=== PATIENT | female | born 1940 | race Caucasian/White ===

== ENCOUNTER 2020-05-06 10:51 | Outpatient (CLI) | payer MEDICARE, SELFPAY ==
[2020-05-06 11:12] LABS: Basophils Absolute Auto 0.1 K/mm3 (0.0-0.1); Basophils Percent Auto 0.7 % (0.2-1.2); Eosinophils Absolute Auto 0.2 K/mm3 (0-0.3); Eosinophils Percent Auto 1.9 % (0-4.4); Hematocrit 41.8 % (37.0-47.0); Immature Granulocyte Absolute 0.03 K/mm3 (0.00-0.031); Immature Granulocyte Percent A 0.3 % (0-0.5); Lymphocytes Absolute Auto 2.58 K/mm3 (0.9-3.2); Lymphocytes Percent Auto 26.3 % (18.3-44.2); Mean Corpuscular HGB Conc 33.5 g/dl (32-36); Mean Corpuscular Hemoglobin 30.4 pg (26-34); Mean Corpuscular Volume 90.9 fl (80-100); Mean Platelet Volume 9.3 fl (7.4-10.4); Monocytes Absolute Auto 0.9 K/mm3 (0.1-0.6); Monocytes Percent Auto 8.9 % (2.6-8.5); Neutrophils Absolute Auto 6.1 K/mm3 (1.3-6.7); Neutrophils Percent Auto 61.9 % (45.5-73.1); Platelet Count Result 340 k/mm3 (150-375); Red Cell Distribution Width 13.9 % (11.5-14.5); White Blood Count 9.8 K/mm3 (4.5-10.0)
[2020-05-06 11:24] LABS: Alanine Aminotransferase 11 U/L (4-35); Albumin Level 4.5 g/dL (3.5-5.1); Alkaline Phosphatase 65 U/L (38-126); Anion Gap 9 mmol/L (8-16); Aspartate Amino Transferase 23 U/L (14-36); Bilirubin,Total 0.4 mg/dL (0.2-1.3); Blood Urea Nitrogen 24 mg/dL (7-17); Calcium 9.8 mg/dL (8.4-10.2); Carbon Dioxide 30 mmol/L (22-30); Chloride 99 mmol/L (98-107); Estimated Glomerular Filt Rate > 60; Glucose 95 mg/dL (65-105); Potassium 4.3 mmol/L (3.4-5.0); Sodium 138 mmol/L (137-145); Uric Acid 6.3 mg/dL (2.5-7.5)
== END 2020-05-06 10:52 | disposition home or self-care (01) ==
LOC: ANHLAB 10:53
PROVIDERS: PCP Family Medicine; Visit Provider Family Medicine
DX: R22.40 Localized swelling, mass and lump, unspecified lower limb (principal)
CPT/HCPCS: 36415; 80053; 84550; 85025

== ENCOUNTER 2020-05-07 11:27 | Outpatient (CLI) | payer MEDICARE, SELFPAY ==
--- NOTE | ~2020-05-07 | US_ITS ---
EXAMINATION: US venous doppler [facility] DATE: 05/07/2020 12:02 INDICATION: Left lower limb pain. TECHNIQUE: Grayscale ultrasound images without and with compression and Doppler ultrasound images of the left lower extremity veins were obtained. COMPARISON: None. FINDINGS: The visualized portions of left common femoral vein, profunda (deep) femoral vein, femoral vein, popl iteal vein, peroneal veins, posterior tibial veins, and greater saphenous vein outflow are patent. IMPRESSION: 1. No deep venous thrombosis. Reviewed, dictated and finalized at location A.
== END 2020-05-07 11:28 | disposition home or self-care (01) ==
PROVIDERS: PCP Family Medicine; Visit Provider Family Medicine
DX: R22.42 Localized swelling, mass and lump, left lower limb (principal)
CPT/HCPCS: 93971

== ENCOUNTER 2020-05-15 23:23 | Emergency (ER) | payer MEDICARE, SELFPAY ==
--- NOTE | ~2020-05-15 | CT_ITS ---
EXAMINATION: CTA chest PE protocol DATE: 05/16/2020 00:52 INDICATION: Cough and shortness of breath TECHNIQUE: Computed tomography angiography (CTA) of the chest was performed with 100 mL Omnipaque-350 intravenous contrast timed to evaluate the pulmonary arteries. Coronal maximum intensity projection 3D-reconstructions were created by the technologist. The dose-length product (DLP) was 565.66 mGy-cm. Automated exposure control and iterative reconstruction technique were employed. COMPARISON: 08/18/2017 FINDINGS: The pulmonary arteries are well-opacified. No pulmonary embolism is identified. There is a n approximately 3.9 x 2.8 cm left hilar mass. A 4 mm nodule of the right lung apex on image 25 is sta ble when compared to the prior examination, consistent with old granulomatous disease. There is a 6 m m nodule of the right lower lobe on image 71. There is mild emphysema. No pleural effusion or pneumot horax is identified. No pathologically enlarged thoracic lymph nodes are identified. The heart size i s normal. Calcified coronary artery atherosclerosis is noted. There is moderate thoracic spondylosis. IMPRESSION: 1. Left hilar mass concerning for primary bronchogenic carcinoma. This would likely be amenable to br onchoscopic biopsy, which is recommended. 2. No pulmonary embolism. 3. Right lung nodules as described, one of which is consistent with old granulomatous disease in the other of which is indeterminate. Reviewed, dictated and finalized at location A. HBOARD STUFFER IMPRESSION: 1. Left hilar mass concerning for primary bronchogenic carcinoma. This would li tori be amenable to bronchoscopic biopsy, which is recommended. 2. No pulmonary embolism. 3. Right lung nodules as described, one of which is consistent with old granulo matous disease in the other of which is indeterminate.
--- NOTE | ~2020-05-15 | CT_ITS ---
EXAMINATION: CT brain wo con INDICATION: Weakness COMPARISON: None TECHNIQUE: Standard unenhanced head CT. The dose-length product (DLP) was 605.33 mGy-cm. The mA was a djusted according to patient size. Iterative reconstruction technique was employed. FINDINGS: There is no acute intraparenchymal hemorrhage. No evidence of mass lesion. No evidence of a cute infarction. There is an old lacunar infarct of the right caudate. 7There is mild periventricular and subcortical hypodensity probably related to small vessel ischemic disease. There is mild promine nce of the sulci and ventricles related to cerebral atrophy. Intracranial calcified cerebral atherosc lerosis is noted. There are no extra-axial collections. There is no mass effect or midline shift. Emmy nges in the globes are likely from ocular lens surgery. The visualized sinuses and mastoid air cells are well aerated. IMPRESSION: 1. No acute intracranial abnormality. 2. Age related findings. Reviewed, dictated and finalized at location A. AINER CRANE OPERATOR
--- NOTE | 2020-05-15 23:25 | ED.GENADULT ---
HPI - General Adult General Chief complaint: Weakness Stated complaint: coughing up blood/ headache Time Seen by Provider: 05/15/20 23:25 Source: patient and family Mode of arrival: wheelchair Limitations: no limitations History of Present Illness HPI narrative: Patient is a 80-year-old female with a history of hypertension, hyperlipidemia, COPD, congestive heart failure who presents for evaluation of weakness, hemoptysis. Patient states that she has had increased weakness since obtaining her flu vaccination 2 weeks ago. After she was given the flu vaccination by her primary care physician, she 2 days later developed left ankle redness and swelling that extended throughout her leg. Her left leg was negative for DVT. Swelling has since improved. Since that time, patient has had increased weakness, shortness of breath, has been coughing up blood over the past several days. She denies large blood clots, reports streakiness of blood. She denies history of lung cancer, states she does have a history of ovarian cancer. She denies fever or unintentional weight loss. She does report decreased oral intake. She reports some nausea with a couple of episodes of emesis, but was able to tolerate oral intake today. She denies abdominal pain. She reports malodorous urine without dysuria or hematuria. Related Data Allergies Allergy/AdvReac Type Severity Reaction Status Date / Time No Known Allergies Allergy Verified 05/02/17 09:44 Review of Systems Review of Systems: Narrative: CONSTITUTIONAL: Denies fever, chills, or sweats. EYES: Denies visual changes ENT: Denies rhinorrhea, congestion, sore throat, or otalgia. CARDIOVASCULAR: Denies chest pain, palpitations, or edema. RESPIRATORY: Reports cough and shortness of breath GASTROINTESTINAL: Denies abdominal pain, reports nausea and vomiting GENITOURINARY: Denies dysuria or hematuria. Pt does report malodorous urine. SKIN: Denies rash or itching. MUSCULOSKELETAL: Denies back pain, joint pain, or myalgia. NEUROLOGIC: Reports mild headache, denies numbness, reports feeling diffusely weak PMFSH Past Medical History Medical History (Updated 05/16/20 @ 02:20 by Linda Howell MD) Chronic back pain COPD (chronic obstructive pulmonary disease) Depression Diabetes Hyperlipidemia Hypertension Hypothyroidism Ovarian cancer Surgical History Surgical History (Updated 05/15/20 @ 23:51 by Linda Howell MD) History of appendectomy Hx of cholecystectomy Family History Family History (Updated 03/31/17 @ 15:05 by DOCTOR UNKNOWN) Mother Family history of Alzheimer's disease Patient's mother is Sibling Family history of heart disease in male family member before age 55, Onset Age: 40 Patient's sister is Hypertension Other Family history of mental disorder Social History Social History Smoking status: Former smoker Smoking end date: 07/10/15 Alcohol intake: never Exam Narrative: Exam Narrative: GENERAL: Awake, alert, conversant HEAD: Normocephalic, atraumatic. EYES: PERRLA and EOMI. ENT: Nares clear, no rhinorrhea or epistaxis. Mucous membranes moist. NECK: Supple. CHEST: No respiratory distress, breathing even and non labored, lungs clear to auscultation bilaterally HEART: Regular rate, sinus rhythm ABDOMEN:Non distended, non tender EXTREMITIES: Normal range of motion. No edema. SKIN: Warm, dry, petechiae to bilateral anterior shins NEURO:No focal deficits. Alert and oriented x3 Course Vital Signs Vital signs: Vital Signs Temperature 36.7 C 05/15/20 23:29 Pulse Rate 81 05/15/20 23:29 Respiratory Rate 24 H 05/15/20 23:29 Blood Pressure 163/64 H 05/15/20 23:29 Pulse Oximetry 100 05/15/20 23:29 Temperature 36.9 C 05/16/20 02:30 Pulse Rate 87 05/16/20 02:30 Respiratory Rate 20 05/16/20 02:30 Blood Pressure 157/57 H 05/16/20 02:30 Pulse Oximetry 94 05/16/20 02:30 Medical Decision Making MDM
[2020-05-15 23:29] VITALS: BP 163/64; PULSE 81; RESP 24; TEMP 36.7; O2SAT 100
[2020-05-16 00:17] LABS: Prothrombin Time 13.6 Seconds (11.1-14.7)
[2020-05-16 00:20] LABS: D Dimer 1.95 ug/mL (<0.48)
[2020-05-16 00:23] LABS: Basophils Percent Auto 0.5 % (0.2-1.2); Eosinophils Absolute Auto 0.1 K/mm3 (0-0.3); Immature Granulocyte Absolute 0.02 K/mm3 (0.00-0.031); Immature Granulocyte Percent A 0.3 % (0-0.5); Lymphocytes Absolute Auto 2.64 K/mm3 (0.9-3.2); Lymphocytes Percent Auto 40.4 % (18.3-44.2); Mean Corpuscular HGB Conc 33.3 g/dl (32-36); Mean Corpuscular Hemoglobin 30.2 pg (26-34); Mean Corpuscular Volume 90.7 fl (80-100); Mean Platelet Volume 9.5 fl (7.4-10.4); Monocytes Absolute Auto 0.8 K/mm3 (0.1-0.6); Monocytes Percent Auto 11.6 % (2.6-8.5); Neutrophils Percent Auto 45.2 % (45.5-73.1); Platelet Count Result 346 k/mm3 (150-375); White Blood Count 6.5 K/mm3 (4.5-10.0)
[2020-05-16 00:26] LABS: Alanine Aminotransferase 11 U/L (4-35); Albumin Level 4.1 g/dL (3.5-5.1); Alkaline Phosphatase 64 U/L (38-126); Anion Gap 4 mmol/L (8-16); Aspartate Amino Transferase 25 U/L (14-36); Bilirubin,Total 0.4 mg/dL (0.2-1.3); Blood Urea Nitrogen 13 mg/dL (7-17); CRP < 0.5 mg/dL (<1.0); Calcium 9.6 mg/dL (8.4-10.2); Carbon Dioxide 32 mmol/L (22-30); Chloride 103 mmol/L (98-107); Creatine Kinase 54 U/L (30-135); Estimated CRCL calculation 42 ml/min; Estimated Glomerular Filt Rate > 60; Glucose 104 mg/dL (65-105); Lipase 87 U/L (23-300); Potassium 3.8 mmol/L (3.4-5.0); Sodium 139 mmol/L (137-145)
[2020-05-16 00:31] LABS: NT Pro B Type Natriuretic Pept 1030 PG/ML (5-100)
[2020-05-16] MEDS: ONDANSETRON INJ 4 MG/2 ML VIAL IV PUSH (00:33)
[2020-05-16 00:34] LABS: Troponin I < 0.012 ng/mL (0.000-0.034)
[2020-05-16] MEDS: SODIUM CHLORIDE 0.9% IV 1,000 ML 999 ML IV CONT (00:54)
[2020-05-16 00:57] VITALS: BP 134/94; PULSE 76; RESP 18; O2SAT 100
[2020-05-16 01:03] LABS: Add Urine Microscopic? YES; Appearance Urine Clear (Clear); Bacteria Urine Trace /hpf; Bilirubin Urine Negative (Negative); Blood Urine 1+ (Negative); Color Urine Straw (Yellow); Glucose Urine UA Negative (Negative); Ketones Urine Negative (Negative); Leukocyte Esterase Ur 3+ LEU/UL (Negative); Mucus Urine Rare /lpf; Nitrate Urine Negative (Negative); Protein Urine Negative (Negative); Specific Grav Ur 1.006 (1.001-1.035); Squamous Epithelial Cell Urine Moderate /hpf (Few); Urobilinogen Urine Negative mg/dL (<2.0); WBC Urine >75 /hpf
--- NOTE | 2020-05-16 02:28 | PC.NURSE ---
pt walked in hallway with pulse oximetry. Pt remained 92-94% on room air while walking. Dr arteaga notified.
[2020-05-16 02:30] VITALS: BP 157/57; PULSE 87; RESP 20; TEMP 36.9; O2SAT 94
== END 2020-05-16 02:31 | disposition home or self-care (01) ==
PROVIDERS: Emergency Provider Emergency Medicine; PCP Family Medicine
DX: N39.0 Urinary tract infection, site not specified (principal); R91.8 Other nonspecific abnormal finding of lung field; E78.5 Hyperlipidemia, unspecified; I11.0 Hypertensive heart disease with heart failure; J44.9 Chronic obstructive pulmonary disease, unspecified; I50.9 Heart failure, unspecified; E11.9 Type 2 diabetes mellitus without complications; E03.9 Hypothyroidism, unspecified; Z85.43 Personal history of malignant neoplasm of ovary; Z87.891 Personal history of nicotine dependence
CPT/HCPCS: 36415; 70450; 71275; 80053; 81001; 82550; 83690; 83880; 84443; 84484; 85025; 85380; 85610; 85730; 86140; 87077; 87086; 87088; 87186; 96361; 96365; 96375; 99284; J0696; J2405; J7030; Q9967

== ENCOUNTER 2020-07-01 09:03 | Outpatient (CLI) | payer MEDICARE, SELFPAY ==
--- NOTE | ~2020-07-01 | MR_ITS ---
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 TECHNIQUE: Magnetic resonance imaging (MRI) of the brain and brainstem was performed without and with 14 mL MultiHance intravenous contrast. Sequences included sagittal and axial T1-weighted FSE, axial diffusion-weighted FS EPI, axial T2*-weighted GRE, axial T2-weighted FLAIR Propeller, and axial T2-we ighted Propeller. Postcontrast sequences included axial, sagittal, and coronal T1-weighted FSE. Appar ent diffusion coefficient (ADC) maps were created. COMPARISON: Head CT 05/16/2020 FINDINGS: There are scattered areas of nonspecific increased T2-weighted signal intensity in the cere bral white matter, which is within normal limits for the patient's age. There is no intracranial hemo rrhage, acute infarction, or abnormal intracranial mass lesion. The ventricles are normal in size. Th e mastoid air cells are normal. There are likely changes of ocular lens replacement surgeries. There is mild mucosal thickening in the ethmoid sinuses. IMPRESSION: 1. Normal aging brain. Reviewed, dictated and finalized at location A. HING MACHINE OPERATOR IMPRESSION: 1. Normal aging brain.
[2020-07-01 10:03] LABS: Estimated Glomerular Filt Rate > 60
== END 2020-07-01 09:04 | disposition home or self-care (01) ==
PROVIDERS: PCP Family Medicine
DX: C34.12 Malignant neoplasm of upper lobe, left bronchus or lung (principal)
CPT/HCPCS: 70553; A9577

== ENCOUNTER 2020-10-21 15:48 | Outpatient (CLI) | payer MEDICARE, SELFPAY | END 2020-10-21 15:49 | disposition home or self-care (01) | LOC: ANHCOVIDVC 15:48 | PROVIDERS: PCP Family Medicine | DX: Z23 Encounter for immunization (principal) | CPT/HCPCS: 0001A; 91300 ==

== ENCOUNTER 2020-11-11 16:00 | Outpatient (CLI) | payer MEDICARE, SELFPAY | END 2020-11-11 16:01 | disposition home or self-care (01) | LOC: ANHCOVIDVC 16:00 | PROVIDERS: PCP Family Medicine | DX: Z23 Encounter for immunization (principal) | CPT/HCPCS: 0002A; 91300 ==

== ENCOUNTER → 2021-01-18 17:25 | Outpatient (CLI) | payer MEDICARE, SELFPAY ==
--- NOTE | ~2021-01-18 | MM_ITS ---
EXAMINATION: MM screening [facility] BI w sherrie HISTORY: Screening mammogram TECHNIQUE: Craniocaudal and mediolateral oblique 3-D tomosynthesis images were obtained and synthetic 2-D images were generated. CAD analysis was submitted and interpreted. COMPARISON: 01/18/2019, 01/16/2017, 10/24/2015 BREAST PARENCHYMAL COMPOSITION: There are scattered areas of fibroglandular density. FINDINGS: There is no evidence of suspicious mass, calcification, or architectural distortion to sugg est malignancy in either breast. There has been no suspicious interval change. IMPRESSION: 1. No mammographic evidence of malignancy. 2. Recommend routine screening mammography in one year. BI-RADS Category 1: Negative Reviewed, dictated and finalized at location A.
== END ==
PROVIDERS: PCP Family Medicine; Visit Provider Family Medicine
DX: Z12.31 Encounter for screening mammogram for malignant neoplasm of breast (principal)
CPT/HCPCS: 77063; 77067

== ENCOUNTER 2021-07-28 11:17 | Inpatient (IN) | payer MEDICARE, SELFPAY ==
[2021-07-28] VITALS (19 sets, daily range): BP systolic 101–129; BP diastolic 46–110; PULSE 0–147; RESP 18–30; TEMP 36.3–37.3; O2SAT 95–99
--- NOTE | ~2021-07-28 | XR_ITS ---
XR chest 1V portable 08/03/2021 12:54 Indication: Shortness of breath Procedure: AP portable chest Comparison: Comparison to multiple prior studies sequentially, with oldest reviewed study dated 09/2011. Findings: Patchy bibasilar airspace disease, consistent with pneumonia. Left perihilar atelectasis. S mall pleural effusions, right greater than left. No pneumothorax. Impression: 1: Bibasilar infiltrates, suspicious for pneumonia. 2: Small pleural effusions. 3: Bandlike atelectasis left perihilar region. Reviewed, dictated and finalized at location B. SPLICER Impression: 1: Bibasilar infiltrates, suspicious for pneumonia. 2: Small pleural effusions. 3: Bandlike atelectasis left perihilar region.
--- NOTE | ~2021-07-28 | XR_ITS ---
XR chest 1V portable DATE: 08/01/2021 12:05 INDICATION: Dyspnea, oxygen requirement. Covid infection. History of lung cancer. TECHNIQUE: Portable upright AP chest on 08/01/2021 at 1153 hours COMPARISON: 07/28/2021 CT pulmonary scan 07/28/2021 portable AP chest FINDINGS: There is pulmonary vascular congestion and redistribution, mild prominence of the minor fis sure and bilateral pleural effusions, right greater than left. There are bilateral pulmonary infiltra lashon which are more prominent centrally and particularly in the lower lung zones, including some left lower lobe atelectasis and/or consolidation. There is some mass and/or atelectasis/infiltrate in the perihilar left upper lobe. Heart size appears normal. There is aortic calcification. IMPRESSION: Interval congestive changes including pulmonary vascular congestion, subpleural edema and pleural effusions and bilateral infiltrates since 07/28/2021 The bilateral infiltrates may be due to pulmonary edema, but pneumonia is not excluded Left hilar prominence and left upper lobe and lower lobe atelectasis, increased since 07/28/2021; know n left lung malignancy Reviewed, dictated and finalized at location [facility]. T ADVISOR IMPRESSION: Interval congestive changes including pulmonary vascular congestion , subpleural edema and pleural effusions and bilateral infiltrates since 022 The bilateral infiltrates may be due to pulmonary edema, but pneumonia is not e xcluded Left hilar prominence and left upper lobe and lower lobe atelectasis, increased since 07/28/2021; known left lung malignancy
--- NOTE | ~2021-07-28 | XR_ITS ---
XR chest 1V portable DATE: 07/28/2021 11:39 INDICATION: Cough TECHNIQUE: AP portable chest on 07/28/2021 at 1135 hours COMPARISON: 05/16/2020 CTA chest FINDINGS: There is asymmetric prominence of the left hilum; left hilar mass lesion or adenopathy is e xcluded. Patchy infiltrate is noted in the left mid and lower lung zones. The lungs otherwise appear clear. No pleural effusion or pulmonary vascular congestion or pneumothora x. Normal heart size. Degenerative spurring of the thoracic spine. IMPRESSION: Left mid and lower lung infiltrate and asymmetric prominence of the left hilum. Left livan r mass lesion or adenopathy is not excluded. Consider CT thorax with IV contrast material Reviewed, dictated and finalized at location A. ATORS SCHOOL MANAGER IMPRESSION: Left mid and lower lung infiltrate and asymmetric prominence of the left hilum. Left hilar mass lesion or adenopathy is not excluded. Consider CT thorax with IV contrast material
--- NOTE | ~2021-07-28 | CT_ITS ---
EXAMINATION: CTA chest PE protocol DATE: 07/28/2021 12:55 INDICATION: Dyspnea. History of lung cancer. TECHNIQUE: Computed tomography angiography (CTA) of the chest was performed with 100 mL Omnipaque-350 intravenous contrast timed to evaluate the pulmonary arteries. Coronal maximum intensity projection 3D-reconstructions were created by the technologist. Automated exposure control and iterative reconst ruction technique were employed. Exam dose: 312.99 mGy-cm total exam DLP. COMPARISON: 07/28/2021 portable AP chest 05/16/2020 CT pulmonary scan FINDINGS: There is diagnostic contrast enhancement of the pulmonary arteries and no evidence of pulmo nary embolism. Small pericardial effusion. Normal heart size. Coronary artery calcifications. No thoracic aortic aneurysm. Moderate emphysematous changes are noted. There is diminished soft tissue mass in the left perihilar area compared to 05/16/2020; there is a his tory of interval chemotherapy and radiotherapy for lung cancer. Small left pleural effusion. Status post cholecystectomy. Prominent degenerative disc disease at the included lower cervical spine. Diffuse idiopathic skeletal hyperostosis of the thoracic spine. No suspicious osteolytic or osteoblas tic lesions are noted. IMPRESSION: Diminished left perihilar lung mass since 05/16/2020 consistent with interval radiotherap y and chemotherapy for lung cancer; the residual soft tissue abnormal mass is likely a combination of residual neoplasm and/or postoperative radiation change No evidence of pulmonary embolism Emphysema Small pericardial effusion and small left pleural effusion Reviewed, dictated and finalized at [facility]. Reviewed, dictated and finalized at location A. AL SUPERVISOR IMPRESSION: Diminished left perihilar lung mass since 05/16/2020 consistent wit h interval radiotherapy and chemotherapy for lung cancer; the residual soft tis thalia abnormal mass is likely a combination of residual neoplasm and/or postopera tive radiation change No evidence of pulmonary embolism Emphysema Small pericardial effusion and small left pleural effusion
--- NOTE | 2021-07-28 11:20 | ECG_ITS ---
Measurements Intervals [place] Rate: 133 P: MA: 0 QRS: -12 QRSD: 89 T: 92 QT: 292 QTc: 434 Interpretive Statements ATRIAL FIBRILLATION WITH RAPID VENTRICULAR RESPONSE LOW QRS VOLTAGE IN LIMB LEADS CANNOT RULE OUT SEPTAL INFARCT, AGE INDETERMINATE BORDERLINE ST-T WAVE ABNORMALITY- HIGH LATERAL LEADS BASELINE ARTIFACT- V4 ABNORMAL ECG Electronically Signed On 07-28-2021 11:40:23 VOCATIONAL REHABILITATION CONSULTANT by Jarvis Cordero D.O.
--- NOTE | 2021-07-28 11:32 | ED.GENADULT ---
HPI - General Adult General Chief complaint: Arrhythmia/Palpitations Stated complaint: arrhythmia Time Seen by Provider: 07/28/21 11:19 Source: RN notes reviewed History of Present Illness HPI narrative: Patient presents emergency department from Dr. Vieira's office for atrial fibrillation. Patient states that she went to the office today for follow-up and was noted to be in atrial fibrillation sent to the ER for further evaluation Dr. Vieira previously called stated the patient had a heart rate approximately 140 in the office. Patient states she does not feel like her heart is racing she states she has been feeling more tired lately states she does have a cough that has been chronic for the past 6 months since she received chemo and radiation for lung cancer. She had no treatment for the past 6 months and is scheduled for CT scan and a follow-up with her oncologist at [facility] this coming week she denies any fevers or chills chest pain abdominal pain nausea vomiting or any other symptoms patient is currently on Plavix and aspirin Related Data Allergies Allergy/AdvReac Type Severity Reaction Status Date / Time No Known Allergies Allergy Verified 05/02/17 09:44 Review of Systems Review of Systems: Gen.: Denies fevers or chills ENT: Denies congestion Respiratory: Reports cough shortness of breath CV: Denies chest pain a flutter noted at cardiology office GI: Denies abdominal pain nausea, emesis or diarrhea Musculoskeletal: Denies back pain or muscle pain Neuro: Denies numbness, tingling, weakness or focal weakness Skin: Denies rash Except as documented, all other systems reviewed and negative [facility] Past Medical History Medical History Chronic back pain COPD (chronic obstructive pulmonary disease) Depression Diabetes Hyperlipidemia Hypertension Hypothyroidism Ovarian cancer Surgical History Surgical History (Updated 05/15/20 @ 23:51 by Linda Howell MD) History of appendectomy Hx of cholecystectomy Family History Family History (Updated 03/31/17 @ 15:05 by DOCTOR UNKNOWN) Mother Family history of Alzheimer's disease Patient's mother is Sibling Family history of heart disease in male family member before age 55, Onset Age: 40 Patient's sister is Hypertension Other Family history of mental disorder Social History Social History Smoking status: Former smoker Smoking end date: 07/10/15 Alcohol intake: never Exam Narrative: APPEARANCE: No acute distress, nontoxic, resting in bed EYES: EOMI HEENT: Normocephalic, atraumatic, OMM RESPIRATORY: No respiratory distress Clear to auscultation bilaterally with no rhonchi wheezing or rales. CARDIOVASCULAR: Tachycardic and regular without murmurs rubs or gallops. ABDOMINAL: Soft, nontender, nondistended, no rebound or guarding MUSCULOSKELETAl: Moves all extremities. No clubbing, cyanosis 3+ edema of the bilateral lower extremities NEURO: Awake and alert. Following commands, speech normal, no focal deficits SKIN:: Warm, dry. No rashes lesions or abrasions PSYCHIATRIC: Normal affect/mood, Course Course Emergency Course: Called and discussed with Dr. Gallegos presentation work-up recommends Cardizem drip increased from 5 mg to 10 mg an hour agrees with consult recommends patient started on Lovenox Discussed with SERGEY Klein for Dr Knox presentation and work-up agrees with admission at this time Discussed with patient and family results of workup and diagnosis. Discussed need for admission. Patient and family understand and agree to current treatment plan Patient with COVID swab for placement that came back positive Discussed with patient and family results of workup and diagnosis. Discussed need for admission. Patient and family understand and agree to current treatment plan Vital Signs Vital signs: Vital Sig
[2021-07-28 11:42] LABS: Basophils Percent Auto 0.3 % (0.2-1.2); Eosinophils Absolute Auto 0.1 K/mm3 (0-0.3); Eosinophils Percent Auto 0.5 % (0-4.4); Hematocrit 38.1 % (37.0-47.0); Hemoglobin 12.5 g/dL (12.0-15.0); Immature Granulocyte Absolute 0.05 K/mm3 (0.00-0.031); Immature Granulocyte Percent A 0.4 % (0-0.5); Lymphocytes Absolute Auto 0.91 K/mm3 (0.9-3.2); Lymphocytes Percent Auto 7.8 % (18.3-44.2); Mean Corpuscular HGB Conc 32.8 g/dl (32-36); Mean Corpuscular Hemoglobin 30.4 pg (26-34); Mean Corpuscular Volume 92.7 fl (80-100); Mean Platelet Volume 8.8 fl (7.4-10.4); Monocytes Percent Auto 8.6 % (2.6-8.5); Neutrophils Absolute Auto 9.6 K/mm3 (1.3-6.7); Neutrophils Percent Auto 82.4 % (45.5-73.1); Platelet Count Result 349 k/mm3 (150-375); Red Blood Count 4.11 M/mm3 (4.2-5.4); Red Cell Distribution Width 14.8 % (11.5-14.5); White Blood Count 11.6 K/mm3 (4.5-10.0)
[2021-07-28 11:52] LABS: Alanine Aminotransferase 15 U/L (4-35); Albumin Level 4.2 g/dL (3.5-5.1); Alkaline Phosphatase 74 U/L (38-126); Anion Gap 10 mmol/L (8-16); Aspartate Amino Transferase 28 U/L (14-36); Bilirubin,Total 0.7 mg/dL (0.2-1.3); Blood Urea Nitrogen 12 mg/dL (7-17); Calcium 9.4 mg/dL (8.4-10.2); Carbon Dioxide 28 mmol/L (22-30); Chloride 94 mmol/L (98-107); Estimated CRCL calculation 63 ml/min; Estimated Glomerular Filt Rate > 60; Glucose 124 mg/dL (65-110); Potassium 3.9 mmol/L (3.4-5.0); Sodium 132 mmol/L (137-145)
[2021-07-28 11:54] LABS: Prothrombin Time 13.2 Seconds (11.1-14.7)
[2021-07-28 11:55] LABS: Partial Thromboplastin Time 35.1 SECONDS (22.3-36.8)
[2021-07-28 12:04] LABS: NT Pro B Type Natriuretic Pept 3560 pg/mL (5-100); Troponin I < 0.012 ng/mL (0.000-0.034)
[2021-07-28] MEDS: dilTIAZem 100 MG/100 ML 100 MG/100 ML BAG IV CONT (12:06)
[2021-07-28] MEDS: ENOXAPARIN 80 MG/0.8 ML SYRINGE 71 MG SUB-Q (14:15)
[2021-07-28 15:06] LABS: SARS-CoV-2 RNA PCR Positive
[2021-07-28 16:50] LABS: Troponin I < 0.012 ng/mL (0.000-0.034)
--- NOTE | 2021-07-28 17:04 | PM.CNCAR ---
Assessment and Plan Assessment and plan (1) Atrial fibrillation with rapid ventricular response: Code(s): I48.91 - Unspecified atrial fibrillation Status: Acute Assessment and Plan: This is a new diagnosis. Uncertain duration of Time. Will keep her NPO after midnight for BEN guided cardioversion tomorrow. Will start her on enoxaparin 1 milligram/kilogram subQ q.12 hours for now and transition her to Xarelto 20 mg daily tomorrow. Diltiazem drip to be initiated. Will stop her Plavix but continue her on aspirin. Continue her other home medications without change. Will repeat a basic metabolic panel tomorrow. Trend troponins (2) COVID-19: Code(s): U07.1 - COVID-19 Status: Acute Assessment and Plan: Newly diagnosed. Will start isolation. Further workup per hospital (3) Peripheral artery disease: Code(s): I73.9 - Peripheral vascular disease, unspecified Status: Acute Assessment and Plan: DC clopidogrel but will continue aspirin and Xarelto at discharge (4) Lung cancer: Code(s): C34.90 - Malignant neoplasm of unspecified part of unspecified bronchus or lung Status: Acute Assessment and Plan: Status post chemo and radiation. (5) Hypertension: Code(s): I10 - Essential (primary) hypertension Status: Inactive Assessment and Plan: Continue home BP meds (6) Hyperlipidemia: Code(s): E78.5 - Hyperlipidemia, unspecified Status: Inactive Assessment and Plan: Continue statin (7) Diabetes: Code(s): E11.9 - Type 2 diabetes mellitus without complications Status: Inactive Assessment and Plan: Per hospitalist (8) COPD (chronic obstructive pulmonary disease): Code(s): J44.9 - Chronic obstructive pulmonary disease, unspecified Status: Acute Assessment and Plan: Continue inhalers. History of Present Illness History of Present Illness Consult date/time: 07/28/21 17:04 Requesting physician: Julio César Crump DO Consult reason: atrial fibrillation Reason For Visit: arrhythmia Narrative: Date of service 07/28/2021 Reason consultation: Atrial flutter/fibrillation Requesting provider: Dr. Crump History patient is a 81-year-old female who has a history of hypertension, hyperlipidemia, diabetes, tobacco use, peripheral artery disease, lung cancer who presented to the office today for routine follow-up with Dr. Vieira. Patient had been feeling quite tired. She has had a chronic cough with sinus drainage chest and shoulder pain due to coughing. Patient denies any chest pain. She has been increasingly more short of breath. No syncope. She has had paroxysmal nocturnal dyspnea. She has been treated recently for COPD exacerbation but only had temporary relief. She was found to be in atrial fibrillation/flutter with rapid ventricular response in the office and sent to emergency department further workup and evaluation. She has since tested positive for COVID. Review of Systems Review of Systems: All systems reviewed & are unremarkable except as noted in HPI and below Constitutional: Constitutional: Reports weakness Eyes: Eyes: Denies blurry vision ENT: Reports nasal congestion Cardiovascular: Cardiovascular: Denies chest pain Respiratory: Respiratory: Reports cough, Reports dyspnea and Reports dyspnea on exertion Gastrointestinal: Gastrointestinal: Denies abdominal pain Genitourinary: Genitourinary: Denies flank pain Musculoskeletal: Musculoskeletal: Denies neck pain Integumentary/Breasts: Skin/Breast: Denies dry skin Neurologic: Denies headache(s) Psychiatric: Psychiatric: Denies behavioral changes Endocrine: Endocrine: Denies excessive sweating Hematologic/Lymphatic: Hematologic/Lymphatic: Denies easy bleeding Allergic/Immunologic: Allergic/Immunologic: Denies GI upset with certain foods PMFSH Past Medical History Medical History (Updated 07/28/21 @ 17:11 by
[2021-07-28] MEDS: ALPRAZolam (*CRX) 0.25 MG TABLET PO (17:30)
--- NOTE | 2021-07-28 18:35 | ADMGEN ---
This patient, aSlma Martino, was admitted to IMU Room 202-01. Patient/family oriented to hospital policies and general routines including ID bracelet, bed and alarms, visiting hours, pain management, procedures, bathroom and other care routines, personal items, smoking policy, room service/diet, and visiting hours. Information on how to activate the Rapid Response Team has been discussed. Patient/Family are encouraged to report perceived risks to care and to ask questions if they do not understand what they are told or what they should do.
[2021-07-28] MEDS: dilTIAZem 100 MG/100 ML 100 MG/100 ML BAG 15 MG IV CONT (20:45)
[2021-07-28 21:01] LABS: Troponin I < 0.012 ng/mL (0.000-0.034)
--- NOTE | 2021-07-28 21:34 | PM.IMHP ---
H&P: HPI History of Present Illness Date/Time: 07/28/21 21:00 this is a 81-year-old year old female patient who went to her cardiology office for routine checkup. The patient was noted to be in atrial fibrillation was sent to the emergency room to be evaluated. Patient's heart rate was approximately 140 in the office. She did feel like her heart was racing he did feel like she had any problems. The patient stated that she does have a chronic cough. And she receives chemotherapy for her lung cancer. She has had 15 radiation treatments and 4 chemotherapy treatments. She also has a history of COPD. The patient stated that she has not had any treatment for the past 6 months and is scheduled for CT scan and follow-up visit with her oncologist at the [facility] coming up this week. She denied any fever chills or any chest pain or abdominal pain no nausea vomiting or diarrhea. The patient is currently on Plavix and aspirin. Cardiology has seen the patient it already and is planned to have had BEN guided cardioversion tomorrow. Patient was started on therapeutic doses of Lovenox every 12 hours. Patient will need to be transition to Xarelto tomorrow. Patient is on a the diltiazem drip. Stop Plavix but continue on aspirin. The patient also tested positive for COVID-19 today. Cardiac enzymes are negative x3. BNP 3560. Chest CT was read as diminish left perihilar lung mass since 05/16/2020 consistent with interval radial therapy and chemotherapy for lung cancer the residual soft tissue a normal masses likely combination residual neoplasm and are postoperative radiation change. No evidence of any pulmonary embolism. Emphysema. Small pericardial effusion small left pleural effusion. The patient was started on Lovenox in the emergency room, Cardizem drip, and Xanax. The patient is being admitted to observation status on the date of service of 07/28/2021. Chief Complaint: Abnormal heart rate Review of Systems Review of Systems: All systems reviewed & are unremarkable except as noted in HPI and below Constitutional: Constitutional: Reports as per HPI and Reports no additional constitutional complaints Eyes: Eyes: Reports as per HPI and Reports no additional eye complaints ENT: Reports system reviewed and no additional complaints, except as documented and Reports Normal hearing present Cardiovascular: Cardiovascular: Reports no additional cardiovascular complaints Respiratory: Respiratory: Reports no additional respiratory complaints and Reports no additional respiratory complaints Gastrointestinal: Gastrointestinal: Reports as per HPI and Reports no additional gastrointestinal complaints Musculoskeletal: Musculoskeletal: Reports no additional musculoskeletal complaints Integumentary/Breasts: Skin/Breast: Reports system reviewed and no additional complaints, except as docu and Reports as per HPI Neurologic: Reports system reviewed and no additional complaints, except as documented, Reports as per HPI and Reports Normal hearing present Psychiatric: Psychiatric: Reports no additional psychiatric complaints and Reports as per HPI Endocrine: Endocrine: Reports no additional endocrine complaints Hematologic/Lymphatic: Hematologic/Lymphatic: Reports no additional hematologic/lymphatic complaints Allergic/Immunologic: Allergic/Immunologic: Reports no additional allergic/immunologic complaints [facility]LY [facility], [facility] Past Medical History Medical History (Updated 07/28/21 @ 22:01 by Latoya Ross NP) Chronic back pain COPD (chronic obstructive pulmonary disease) Depression Diabetes DM2 (diabetes mellitus, type 2) Hyperlipidemia Hypertension Hypothyroidism Ovarian cancer Peripheral artery disease Surgical History Surgical History (Updated 07/28/21 @ 21:44 by Latoya Ross NP) History of appendectomy History of back surgery X5 Hx of cholecystectomy Family History Family History Mother
[2021-07-28 22:44] LABS: Glucose Point of Care 153 mg/dl (65-105)
[2021-07-28] MEDS: guaiFENesin/DEXTROMETHORPHAN 10 ML UDC 5 ML PO (23:40)
[2021-07-28] MEDS: LEVALBUTEROL HFA (*SP) 15 GM INHALER 2 PUFF INHALATION (23:56)
[2021-07-29] VITALS (22 sets, daily range): BP systolic 96–119; BP diastolic 43–82; PULSE 47–145; RESP 16–22; TEMP 35.8–36.9; O2SAT 92–100
[2021-07-29] MEDS: ENOXAPARIN 80 MG/0.8 ML SYRINGE 70 MG SUB-Q (01:37)
[2021-07-29] MEDS: dilTIAZem 100 MG/100 ML 100 MG/100 ML BAG IV CONT (04:29)
[2021-07-29] MEDS: LEVOTHYROXINE SODIUM 12.5 MCG TABLET 37.5 MCG BY MOUTH (05:10)
[2021-07-29 05:28] LABS: Basophils Absolute Auto 0.1 K/mm3 (0.0-0.1); Basophils Percent Auto 0.6 % (0.2-1.2); Eosinophils Absolute Auto 0.1 K/mm3 (0-0.3); Eosinophils Percent Auto 0.6 % (0-4.4); Hematocrit 33.2 % (37.0-47.0); Hemoglobin 10.7 g/dL (12.0-15.0); Immature Granulocyte Absolute 0.02 K/mm3 (0.00-0.031); Immature Granulocyte Percent A 0.2 % (0-0.5); Lymphocytes Absolute Auto 0.88 K/mm3 (0.9-3.2); Lymphocytes Percent Auto 10.5 % (18.3-44.2); Mean Corpuscular HGB Conc 32.2 g/dl (32-36); Mean Corpuscular Hemoglobin 30.4 pg (26-34); Mean Corpuscular Volume 94.3 fl (80-100); Mean Platelet Volume 9.3 fl (7.4-10.4); Monocytes Absolute Auto 0.9 K/mm3 (0.1-0.6); Monocytes Percent Auto 10.8 % (2.6-8.5); Neutrophils Absolute Auto 6.5 K/mm3 (1.3-6.7); Neutrophils Percent Auto 77.3 % (45.5-73.1); Platelet Count Result 327 k/mm3 (150-375); Red Blood Count 3.52 M/mm3 (4.2-5.4); Red Cell Distribution Width 14.7 % (11.5-14.5); White Blood Count 8.4 K/mm3 (4.5-10.0)
[2021-07-29 05:38] LABS: Anion Gap 8 mmol/L (8-16); Blood Urea Nitrogen 13 mg/dL (7-17); Calcium 8.7 mg/dL (8.4-10.2); Carbon Dioxide 27 mmol/L (22-30); Chloride 97 mmol/L (98-107); Estimated CRCL calculation 63 ml/min; Estimated Glomerular Filt Rate > 60; Glucose 108 mg/dL (65-110); Lactate Dehydrogenase 361 U/L (313-618); Magnesium 1.8 mg/dL (1.6-2.3); Sodium 132 mmol/L (137-145)
[2021-07-29] MEDS: UMECLIDINIUM BROMIDE 62.5 MCG ELLIPTA 1 PUFF INHALATION (06:03)
[2021-07-29] MEDS: LEVALBUTEROL HFA (*SP) 15 GM INHALER 2 PUFF INHALATION ×2 (06:03→21:09)
[2021-07-29 08:46] LABS: Glucose Point of Care 104 mg/dl (65-105)
[2021-07-29] MEDS: ALPRAZolam (*CRX) 0.25 MG TABLET BY MOUTH ×3 (10:03→16:34)
[2021-07-29] MEDS: FLUTICASONE PROPIONATE 0.05% NA SPR 16 GM BTL (*BKC) 1 SPRAY NASAL (10:04)
[2021-07-29] MEDS: ASPIRIN 81 MG ENTERIC TABLET BY MOUTH (10:04)
[2021-07-29] MEDS: POTASSIUM CHLORIDE 10 MEQ TABLET.ER PO (10:04)
[2021-07-29] MEDS: guaiFENesin/DEXTROMETHORPHAN 10 ML UDC 5 ML PO ×4 (10:04→21:53)
--- NOTE | 2021-07-29 11:35 | PM.PNCARD ---
Progress Note: A&P Assessment and Plan (1) Atrial fibrillation with rapid ventricular response: Code(s): I48.91 - Unspecified atrial fibrillation Status: Acute Assessment and Plan: This is a new diagnosis. Uncertain duration of Time. Because a COVID positivity, will not perform a BEN today. Heart rate is reasonably controlled and will continue rate control and perform outpatient cardioversion only in 4 weeks or so. Will anticoagulate with Xarelto. Will discontinue her enoxaparin and start Xarelto 20 mg p.o. daily. DC IV diltiazem and initiate short-acting oral diltiazem at 30 mg p.o. t.i.d. (2) COVID-19: Code(s): U07.1 - COVID-19 Status: Acute Assessment and Plan: Newly diagnosed. Will start isolation. Further workup per hospitalist (3) Peripheral artery disease: Code(s): I73.9 - Peripheral vascular disease, unspecified Status: Acute Assessment and Plan: DC clopidogrel but will continue aspirin and Xarelto at discharge (4) Lung cancer: Code(s): C34.90 - Malignant neoplasm of unspecified part of unspecified bronchus or lung Status: Acute Assessment and Plan: Status post chemo and radiation. (5) Hypertension: Code(s): I10 - Essential (primary) hypertension Status: Chronic Assessment and Plan: Continue home BP meds (6) Hyperlipidemia: Code(s): E78.5 - Hyperlipidemia, unspecified Status: Chronic Assessment and Plan: Continue statin (7) Diabetes: Code(s): E11.9 - Type 2 diabetes mellitus without complications Status: Inactive Assessment and Plan: Per hospitalist (8) COPD (chronic obstructive pulmonary disease): Code(s): J44.9 - Chronic obstructive pulmonary disease, unspecified Status: Acute Assessment and Plan: Continue inhalers. Subjective Date/time seen: 07/29/21 11:35 Interval history: 81-year-old admitted for atrial fibrillation, shortness of breath and weakness. Found to be also COVID positive Date of service is 07/29/2021: Still coughing but a bit better. She feels about the same. She has no chest pain or shortness of breath at rest. Heart rate is better controlled Review of Systems Review of Systems: All systems reviewed & are unremarkable except as noted in HPI and below Constitutional: Constitutional: Denies excessive sweating, Denies headache(s) and Reports weakness Eyes: Eyes: Denies blurry vision ENT: Denies headache(s), Reports nasal congestion and Denies neck pain Cardiovascular: Cardiovascular: Denies chest pain, Reports dyspnea and Reports dyspnea on exertion Respiratory: Respiratory: Reports cough, Reports dyspnea and Reports dyspnea on exertion Gastrointestinal: Gastrointestinal: Denies abdominal pain Genitourinary: Genitourinary: Denies flank pain Musculoskeletal: Musculoskeletal: Denies neck pain Integumentary/Breasts: Skin/Breast: Denies dry skin Neurologic: Denies behavioral changes, Denies headache(s) and Reports weakness Psychiatric: Psychiatric: Denies behavioral changes Endocrine: Endocrine: Denies excessive sweating Hematologic/Lymphatic: Hematologic/Lymphatic: Denies easy bleeding Allergic/Immunologic: Allergic/Immunologic: Denies GI upset with certain foods Exam Narrative: Alert oriented coughing Const: General: comfortable and no acute distress HENMT: General nose exam: Normal nares present Eyes: Sclera: sclerae normal Neck: Neck: no JVD Carotids: no bruits Chest: Other: No reproducible chest wall pain to palpation Resp: Auscultation: wheezes and diminished lung sounds Cardio: Rate: regular rate Rhythm: abnormal rhythm irregularly irregular GI: Inspection: non-distended Auscultation: normal bowel sounds Skin: General skin exam: normal color Neuro: Cognition (Neuro): normal cognition Speech: normal speech Extrem: General: normal to inspection and no edema Psych: Affect: elvia
[2021-07-29] MEDS: dilTIAZem HCL 30 MG TABLET PO ×3 (12:37→21:53)
[2021-07-29 12:41] LABS: Glucose Point of Care 175 mg/dl (65-105)
--- NOTE | 2021-07-29 15:07 | PM.IMPN ---
Progress Note: A&P Assessment and Plan (1) COVID-19: Code(s): U07.1 - COVID-19 Status: Acute Assessment and Plan: At this point I did not start her on any REM does severe. The patient stated she recently had Decadron and does not want Decadron at this point. She is wanting something for the cough though. I will start her on albuterol inhaler and Robitussin. The patient's heart rate is currently in the 80s. I will try Xopenex inhaler. However if it increases her heart rate then will need to stop it. 07/29/2021 Interval history: patient with COVID-19 will start the patient on remdesivir, patient with new onset atrial fibrillation with RVR patient is seen by Cardiology initial plan was to do BEN cardioversion however patient is COVID positive so it has been postponed, patient was started on diltiazem drip repeat is trending down patient anticoagulated with Lovenox for now, will switch over to oral anticoagulant upon discharge, patient states overall she is feeling better compared to when she was will continue to monitor. (2) Atrial fibrillation with rapid ventricular response: Code(s): I48.91 - Unspecified atrial fibrillation Status: Acute Assessment and Plan: Patient has not had this previously. She started on subcu Lovenox. Cardiology has seen the patient. Patient is planning to have a BEN cardioversion tomorrow. Should be NPO after midnight. The patient's chads Vasc score is 5. (3) Peripheral artery disease: Code(s): I73.9 - Peripheral vascular disease, unspecified Status: Acute Assessment and Plan: Continue with aspirin. DC Plavix. (4) Lung cancer: Code(s): C34.90 - Malignant neoplasm of unspecified part of unspecified bronchus or lung Status: Acute Assessment and Plan: Patient has an outpatient follow-up scheduled in the near future. (5) COPD (chronic obstructive pulmonary disease): Code(s): J44.9 - Chronic obstructive pulmonary disease, unspecified Status: Acute Assessment and Plan: Continue with home inhalers. She may have to use her home dose of Spiriva. (6) DM2 (diabetes mellitus, type 2): Code(s): E11.9 - Type 2 diabetes mellitus without complications Status: Chronic Assessment and Plan: [facility] and [facility]. Sliding scale insulin. (7) Hypothyroidism: Code(s): E03.9 - Hypothyroidism, unspecified Status: Chronic Assessment and Plan: Continue with levothyroxine. (8) Hypertension: Code(s): I10 - Essential (primary) hypertension Status: Chronic Assessment and Plan: Hold amlodipine and Coreg at this time due to the Cardizem drip. (9) Hyperlipidemia: Code(s): E78.5 - Hyperlipidemia, unspecified Status: Chronic Assessment and Plan: Continue with simvastatin. Subjective Date/time seen: 07/29/21 15:07 HPI: this is a 81-year-old year old female patient who went to her cardiology office for routine checkup. The patient was noted to be in atrial fibrillation was sent to the emergency room to be evaluated. Patient's heart rate was approximately 140 in the office. She did feel like her heart was racing he did feel like she had any problems. The patient stated that she does have a chronic cough. And she receives chemotherapy for her lung cancer. She has had 15 radiation treatments and 4 chemotherapy treatments. She also has a history of COPD. The patient stated that she has not had any treatment for the past 6 months and is scheduled for CT scan and follow-up visit with her oncologist at the [facility] coming up this week. She denied any fever chills or any chest pain or abdominal pain no nausea vomiting or diarrhea. The patient is currently on Plavix and aspirin. Cardiology has seen the patient it already and is planned to have had BEN guided cardioversion tomorrow. Patient was started on therapeutic doses of Lovenox every 12 hours. Patient wi
[2021-07-29 15:39] LABS: Alanine Aminotransferase 13 U/L (4-35)
[2021-07-29 15:47] LABS: INR 1.2
[2021-07-29] MEDS: REMDESIVIR 200 MG/NS 250 ML 200 MG/250 ML BAG 250 MG IVPB (16:29)
[2021-07-29] MEDS: RIVAROXABAN 20 MG TABLET PO (16:30)
[2021-07-29 16:47] LABS: Glucose Point of Care 115 mg/dl (65-105)
[2021-07-29] MEDS: BENZONATATE 100 MG CAPSULE 200 MG PO (18:12)
[2021-07-29] MEDS: MONTELUKAST SODIUM 10 MG TABLET PO (21:52)
[2021-07-29] MEDS: SIMVASTATIN 5 MG TABLET 10 MG BY MOUTH (21:52)
[2021-07-29 22:08] LABS: Glucose Point of Care 130 mg/dl (65-105)
[2021-07-30] VITALS (25 sets, daily range): BP systolic 96–125; BP diastolic 52–86; PULSE 80–145; RESP 20–22; TEMP 36.3–36.8; O2SAT 80–100; BMI 25.0
[2021-07-30] MEDS: AMIODARONE 150 MG/D5W 100 ML 150 MG/100 ML BAG 600 MG IV CONT (00:15)
[2021-07-30] MEDS: AMIODARONE 360 MG/D5W 200 ML 360 MG/200 ML BAG 33.33 MG IV CONT (00:15)
[2021-07-30] MEDS: LEVALBUTEROL HFA (*SP) 15 GM INHALER 2 PUFF INHALATION ×6 (00:55→20:08)
[2021-07-30 04:47] LABS: Hematocrit 37.5 % (37.0-47.0); Mean Corpuscular Hemoglobin 29.9 pg (26-34); Mean Corpuscular Volume 93.5 fl (80-100); Mean Platelet Volume 8.9 fl (7.4-10.4); Platelet Count Result 410 k/mm3 (150-375); Red Blood Count 4.01 M/mm3 (4.2-5.4); Red Cell Distribution Width 14.4 % (11.5-14.5); White Blood Count 10.5 K/mm3 (4.5-10.0)
[2021-07-30 04:59] LABS: INR 0.9; Prothrombin Time 12.5 Seconds (11.1-14.7)
[2021-07-30 05:15] LABS: Alanine Aminotransferase 14 U/L (4-35); Albumin Level 3.9 g/dL (3.5-5.1); Alkaline Phosphatase 58 U/L (38-126); Anion Gap 8 mmol/L (8-16); Aspartate Amino Transferase 22 U/L (14-36); Bilirubin,Total 0.3 mg/dL (0.2-1.3); Blood Urea Nitrogen 15 mg/dL (7-17); CRP 2.5 mg/dL (<1.0); Calcium 8.8 mg/dL (8.4-10.2); Carbon Dioxide 29 mmol/L (22-30); Chloride 93 mmol/L (98-107); Estimated CRCL calculation 63 ml/min; Estimated Glomerular Filt Rate > 60; Glucose 169 mg/dL (65-110); Potassium 4.8 mmol/L (3.4-5.0); Sodium 130 mmol/L (137-145)
[2021-07-30] MEDS: AMIODARONE 360 MG/D5W 200 ML 360 MG/200 ML BAG 16.67 MG IV CONT ×2 (06:04→16:57)
[2021-07-30] MEDS: LEVOTHYROXINE SODIUM 12.5 MCG TABLET 37.5 MCG BY MOUTH (06:05)
[2021-07-30 08:28] LABS: Glucose Point of Care 174 mg/dl (65-105)
[2021-07-30] MEDS: UMECLIDINIUM BROMIDE 62.5 MCG ELLIPTA 1 PUFF INHALATION (08:32)
--- NOTE | 2021-07-30 09:12 | PM.PNCARD ---
Progress Note: A&P Assessment and Plan (1) Atrial fibrillation with rapid ventricular response: Code(s): I48.91 - Unspecified atrial fibrillation Status: Acute Assessment and Plan: This is a new diagnosis, unknown chronicity. Had previously been rate controlled on diltiazem. However, she became hypotensive and this had to be stopped. Was placed on an amiodarone drip overnight for RVR. She was hypotensive so unable to use beta-darnell or Cardizem. Remains on amiodarone drip at this time. Telemetry showing a sinus tachycardia however, questionable atrial flutter so a 12 lead EKG was obtained. Read as SVT however, upon review with Dr. Pereira it is thought to be an atypical atrial flutter. Will start low-dose metoprolol 12.5 mg b.i.d., would like to get her off of amiodarone if possible with beta-darnell rate controlled. However, may be difficult due to her relative hypotension. She is being anticoagulated with Xarelto. When she has recovered from COVID and has been anticoagulated for the appropriate amount of time (4-6 weeks) can consider outpatient cardioversion. (2) COVID-19: Code(s): U07.1 - COVID-19 Status: Acute Assessment and Plan: Newly diagnosed. Will start isolation. Further workup per hospitalist (3) Peripheral artery disease: Code(s): I73.9 - Peripheral vascular disease, unspecified Status: Acute Assessment and Plan: DC clopidogrel but will continue aspirin and Xarelto at discharge (4) Lung cancer: Code(s): C34.90 - Malignant neoplasm of unspecified part of unspecified bronchus or lung Status: Acute Assessment and Plan: Status post chemo and radiation. (5) Hypertension: Code(s): I10 - Essential (primary) hypertension Status: Chronic Assessment and Plan: Continue home BP meds (6) Hyperlipidemia: Code(s): E78.5 - Hyperlipidemia, unspecified Status: Chronic Assessment and Plan: Continue statin (7) COPD (chronic obstructive pulmonary disease): Code(s): J44.9 - Chronic obstructive pulmonary disease, unspecified Status: Acute Assessment and Plan: Continue inhalers. Subjective Date/time seen: 07/30/21 09:12 Interval history: 81-year-old admitted for atrial fibrillation, shortness of breath and weakness. Found to be also COVID positive Date of service is 07/29/2021: Still coughing but a bit better. She feels about the same. She has no chest pain or shortness of breath at rest. Heart rate is better controlled Date of service 07/31/2021: She is feeling okay today. Still has a cough but is not feeling short of breath. She denies any palpitations although she did revert to AFib with RVR last night and was placed on amiodarone drip... she is asymptomatic with this. Review of Systems Review of Systems: All systems reviewed & are unremarkable except as noted in HPI and below Constitutional: Constitutional: Denies excessive sweating, Denies headache(s) and Reports weakness Eyes: Eyes: Denies blurry vision ENT: Denies headache(s), Reports nasal congestion and Denies neck pain Cardiovascular: Cardiovascular: Denies chest pain, Reports dyspnea and Reports dyspnea on exertion Respiratory: Respiratory: Reports cough, Reports dyspnea and Reports dyspnea on exertion Gastrointestinal: Gastrointestinal: Denies abdominal pain Genitourinary: Genitourinary: Denies flank pain Musculoskeletal: Musculoskeletal: Denies neck pain Integumentary/Breasts: Skin/Breast: Denies dry skin Neurologic: Denies behavioral changes, Denies headache(s) and Reports weakness Psychiatric: Psychiatric: Denies behavioral changes Endocrine: Endocrine: Denies excessive sweating Hematologic/Lymphatic: Hematologic/Lymphatic: Denies easy bleeding Allergic/Immunologic: Allergic/Immunologic: Denies GI upset with certain foods Exam Narrative: Older lady laying in bed. Alert and oriented. Con
--- NOTE | 2021-07-30 09:15 | ECG_ITS ---
Measurements Intervals [place] Rate: 120 P: DC: 0 QRS: -24 QRSD: 93 T: 123 QT: 288 QTc: 408 Interpretive Statements SUPRAVENTRICULAR TACHYCARDIA, CONSIDER ECTOPIC ATRIAL TACHYCARDIA LOW QRS VOLTAGE- DIFFUSE LEADS CANNOT RULE OUT SEPTAL INFARCT, AGE INDETERMINATE BORDERLINE ST-T WAVE ABNORMALITY- HIGH LATERAL LEADS BASELINE ARTIFACT- I, II, III, AVR, AVL, AVF, V6 ABNORMAL ECG Electronically Signed On 07-30-2021 10:43:14 FOUNDER & CEO by Jarvis Cordero D.O.
[2021-07-30] MEDS: ALPRAZolam (*CRX) 0.25 MG TABLET BY MOUTH ×3 (09:51→16:56)
[2021-07-30] MEDS: FUROSEMIDE 20 MG TABLET BY MOUTH (09:51)
[2021-07-30] MEDS: guaiFENesin/DEXTROMETHORPHAN 10 ML UDC 5 ML PO ×4 (09:51→21:38)
[2021-07-30] MEDS: BENZONATATE 100 MG CAPSULE 200 MG PO ×3 (09:51→16:56)
[2021-07-30] MEDS: POTASSIUM CHLORIDE 10 MEQ TABLET.ER PO (09:52)
[2021-07-30] MEDS: FLUTICASONE PROPIONATE 0.05% NA SPR 16 GM BTL (*BKC) 1 SPRAY NASAL (09:52)
[2021-07-30] MEDS: ASPIRIN 81 MG ENTERIC TABLET BY MOUTH (09:52)
[2021-07-30 11:54] LABS: Glucose Point of Care 158 mg/dl (65-105)
[2021-07-30] MEDS: METOPROLOL TARTRATE 12.5 MG TABLET PO ×2 (13:25→21:39)
[2021-07-30 15:50] LABS: Glucose Point of Care 151 mg/dl (65-105)
--- NOTE | 2021-07-30 16:19 | PM.IMPN ---
Progress Note: A&P Assessment and Plan (1) COVID-19: Code(s): U07.1 - COVID-19 Status: Acute Assessment and Plan: At this point I did not start her on any REM does severe. The patient stated she recently had Decadron and does not want Decadron at this point. She is wanting something for the cough though. I will start her on albuterol inhaler and Robitussin. The patient's heart rate is currently in the 80s. I will try Xopenex inhaler. However if it increases her heart rate then will need to stop it. 07/29/2021 Interval history: patient with COVID-19 will start the patient on remdesivir, patient with new onset atrial fibrillation with RVR patient is seen by Cardiology initial plan was to do BEN cardioversion however patient is COVID positive so it has been postponed, patient was started on diltiazem drip repeat is trending down patient anticoagulated with Lovenox for now, will switch over to oral anticoagulant upon discharge, patient states overall she is feeling better compared to when she was will continue to monitor. 07/30/2021 Interval history: patient with COVID-19 started the patient on remdesivir 2/, patient is requesting 2 L of oxygen nasal cannula, patient with new onset atrial fibrillation with RVR patient was seen by Cardiology initial plan was to do BEN cardioversion however patient is COVID positive so it has been postponed, patient was started on diltiazem drip, rate is trending down patient anticoagulated with Lovenox for now, will switch over to oral anticoagulant upon discharge, patient states overall she is feeling better compared to when she was will continue to monitor. (2) Atrial fibrillation with rapid ventricular response: Code(s): I48.91 - Unspecified atrial fibrillation Status: Acute Assessment and Plan: Patient has not had this previously. She started on subcu Lovenox. Cardiology has seen the patient. Patient is planning to have a BEN cardioversion tomorrow. Should be NPO after midnight. The patient's chads Vasc score is 5. (3) Peripheral artery disease: Code(s): I73.9 - Peripheral vascular disease, unspecified Status: Acute Assessment and Plan: Continue with aspirin. DC Plavix. (4) Lung cancer: Code(s): C34.90 - Malignant neoplasm of unspecified part of unspecified bronchus or lung Status: Acute Assessment and Plan: Patient has an outpatient follow-up scheduled in the near future. (5) COPD (chronic obstructive pulmonary disease): Code(s): J44.9 - Chronic obstructive pulmonary disease, unspecified Status: Acute Assessment and Plan: Continue with home inhalers. She may have to use her home dose of Spiriva. (6) DM2 (diabetes mellitus, type 2): Code(s): E11.9 - Type 2 diabetes mellitus without complications Status: Chronic Assessment and Plan: Accu-Cheks AC and HS. Sliding scale insulin. (7) Hypothyroidism: Code(s): E03.9 - Hypothyroidism, unspecified Status: Chronic Assessment and Plan: Continue with levothyroxine. (8) Hypertension: Code(s): I10 - Essential (primary) hypertension Status: Chronic Assessment and Plan: Hold amlodipine and Coreg at this time due to the Cardizem drip. (9) Hyperlipidemia: Code(s): E78.5 - Hyperlipidemia, unspecified Status: Chronic Assessment and Plan: Continue with simvastatin. Subjective Date/time seen: 07/30/21 16:19 At this point I did not start her on any REM does severe. The patient stated she recently had Decadron and does not want Decadron at this point. She is wanting something for the cough though. I will start her on albuterol inhaler and Robitussin. The patient's heart rate is currently in the 80s. I will try Xopenex inhaler. However if it increases her heart rate then will need to stop it. 07/29/2021 Interval history: patient with COVID-19 will start the patient on
[2021-07-30] MEDS: RIVAROXABAN 20 MG TABLET PO (16:57)
[2021-07-30 20:22] LABS: Glucose Point of Care 114 mg/dl (65-105)
[2021-07-30] MEDS: SIMVASTATIN 5 MG TABLET 10 MG BY MOUTH (21:38)
[2021-07-30] MEDS: MONTELUKAST SODIUM 10 MG TABLET PO (21:39)
[2021-07-30] MEDS: REMDESIVIR 100 MG/NS 250 ML 100 MG/250 ML BAG 250 MG IVPB (21:39)
[2021-07-31] VITALS (24 sets, daily range): BP systolic 109–126; BP diastolic 42–101; PULSE 80–103; RESP 20–22; TEMP 35.8–37.1; O2SAT 92–100
[2021-07-31] MEDS: LEVALBUTEROL HFA (*SP) 15 GM INHALER 2 PUFF INHALATION ×6 (00:48→20:47)
[2021-07-31 05:03] LABS: Hematocrit 33.9 % (37.0-47.0); Hemoglobin 10.8 g/dL (12.0-15.0); Mean Corpuscular HGB Conc 31.9 g/dl (32-36); Mean Corpuscular Hemoglobin 30.4 pg (26-34); Mean Corpuscular Volume 95.5 fl (80-100); Platelet Count Result 327 k/mm3 (150-375); Red Blood Count 3.55 M/mm3 (4.2-5.4); Red Cell Distribution Width 14.4 % (11.5-14.5); White Blood Count 8.1 K/mm3 (4.5-10.0)
[2021-07-31 05:14] LABS: INR 1.9; Prothrombin Time 21.5 Seconds (11.1-14.7)
[2021-07-31 05:22] LABS: Alanine Aminotransferase 14 U/L (4-35); Albumin Level 3.4 g/dL (3.5-5.1); Alkaline Phosphatase 51 U/L (38-126); Anion Gap 6 mmol/L (8-16); Aspartate Amino Transferase 19 U/L (14-36); Bilirubin,Total 0.3 mg/dL (0.2-1.3); Blood Urea Nitrogen 15 mg/dL (7-17); CRP 2.7 mg/dL (<1.0); Calcium 8.4 mg/dL (8.4-10.2); Carbon Dioxide 29 mmol/L (22-30); Chloride 94 mmol/L (98-107); Estimated CRCL calculation 74 ml/min; Estimated Glomerular Filt Rate > 60; Glucose 124 mg/dL (65-110); Potassium 4.3 mmol/L (3.4-5.0); Sodium 129 mmol/L (137-145)
[2021-07-31] MEDS: LEVOTHYROXINE SODIUM 12.5 MCG TABLET 37.5 MCG BY MOUTH (05:57)
[2021-07-31] MEDS: AMIODARONE 360 MG/D5W 200 ML 360 MG/200 ML BAG 16.67 MG IV CONT (05:57)
[2021-07-31] MEDS: METOPROLOL TARTRATE 12.5 MG TABLET PO ×2 (08:11→20:43)
[2021-07-31] MEDS: ASPIRIN 81 MG ENTERIC TABLET BY MOUTH (08:20)
[2021-07-31] MEDS: FUROSEMIDE 20 MG TABLET BY MOUTH (08:20)
[2021-07-31] MEDS: guaiFENesin/DEXTROMETHORPHAN 10 ML UDC 5 ML PO ×4 (08:20→20:42)
[2021-07-31] MEDS: ALPRAZolam (*CRX) 0.25 MG TABLET BY MOUTH ×3 (08:20→17:24)
[2021-07-31] MEDS: FLUTICASONE PROPIONATE 0.05% NA SPR 16 GM BTL (*BKC) 1 SPRAY NASAL (08:20)
[2021-07-31] MEDS: BENZONATATE 100 MG CAPSULE 200 MG PO ×3 (08:20→17:25)
[2021-07-31] MEDS: POTASSIUM CHLORIDE 10 MEQ TABLET.ER PO (08:21)
[2021-07-31 08:30] LABS: Glucose Point of Care 92 mg/dl (65-105)
[2021-07-31] MEDS: UMECLIDINIUM BROMIDE 62.5 MCG ELLIPTA 1 PUFF INHALATION (08:38)
[2021-07-31] MEDS: SODIUM CHLORIDE 1 GM TABLET PO ×2 (09:59→17:25)
--- NOTE | 2021-07-31 11:47 | PM.IMPN ---
Progress Note: A&P Assessment and Plan (1) COVID-19: Code(s): U07.1 - COVID-19 Status: Acute Assessment and Plan: At this point I did not start her on any REM does severe. The patient stated she recently had Decadron and does not want Decadron at this point. She is wanting something for the cough though. I will start her on albuterol inhaler and Robitussin. The patient's heart rate is currently in the 80s. I will try Xopenex inhaler. However if it increases her heart rate then will need to stop it. 07/29/2021 Interval history: patient with COVID-19 will start the patient on remdesivir, patient with new onset atrial fibrillation with RVR patient is seen by Cardiology initial plan was to do BEN cardioversion however patient is COVID positive so it has been postponed, patient was started on diltiazem drip repeat is trending down patient anticoagulated with Lovenox for now, will switch over to oral anticoagulant upon discharge, patient states overall she is feeling better compared to when she was will continue to monitor. 07/30/2021 Interval history: patient with COVID-19 started the patient on remdesivir 2/5, patient is requesting 2 L of oxygen nasal cannula, patient with new onset atrial fibrillation with RVR patient was seen by Cardiology initial plan was to do BEN cardioversion however patient is COVID positive so it has been postponed, patient was started on diltiazem drip, rate is trending down patient anticoagulated with Lovenox for now, will switch over to oral anticoagulant upon discharge, patient states overall she is feeling better compared to when she was will continue to monitor. 07/31/2021 Interval history: patient with COVID-19 started the patient on remdesivir 3/5, today patient is requesting 5 L of oxygen nasal cannula, patient with new onset atrial fibrillation with RVR patient was seen by Cardiology initial plan was to do BEN cardioversion however patient is COVID positive so it has been postponed, patient was started on diltiazem drip, rate is trending down, however patient became hypotensive and was switched to amiodarone, and because of hypotension patient is not able to take beta-darnell or diltiazem, remains on low-dose amiodarone drip, and started on low-dose of metoprolol 12.5 mg b.i.d. will continue to monitor, patient was anticoagulated with Lovenox, now on Xarelto, patient states overall she is feeling better compared to when she arrived, will continue to monitor. (2) Atrial fibrillation with rapid ventricular response: Code(s): I48.91 - Unspecified atrial fibrillation Status: Acute Assessment and Plan: Patient has not had this previously. She started on subcu Lovenox. Cardiology has seen the patient. Patient is planning to have a BEN cardioversion tomorrow. Should be NPO after midnight. The patient's chads Vasc score is 5. (3) Peripheral artery disease: Code(s): I73.9 - Peripheral vascular disease, unspecified Status: Acute Assessment and Plan: Continue with aspirin. DC Plavix. (4) Lung cancer: Code(s): C34.90 - Malignant neoplasm of unspecified part of unspecified bronchus or lung Status: Acute Assessment and Plan: Patient has an outpatient follow-up scheduled in the near future. (5) COPD (chronic obstructive pulmonary disease): Code(s): J44.9 - Chronic obstructive pulmonary disease, unspecified Status: Acute Assessment and Plan: Continue with home inhalers. She may have to use her home dose of Spiriva. (6) DM2 (diabetes mellitus, type 2): Code(s): E11.9 - Type 2 diabetes mellitus without complications Status: Chronic Assessment and Plan: Accu-Cheks AC and HS. Sliding scale insulin. (7) Hypothyroidism: Code(s): E03.9 - Hypothyroidism, unspecified Status: Chronic Assessment and Plan: Continue with levothyroxine. (8) Hypertension: Code(s): I10
--- NOTE | 2021-07-31 12:18 | PM.PNCARD ---
Progress Note: A&P Assessment and Plan (1) Atrial fibrillation with rapid ventricular response: Code(s): I48.91 - Unspecified atrial fibrillation Status: Acute Assessment and Plan: This is a new diagnosis, unknown chronicity. Had previously been rate controlled on diltiazem. However, she became hypotensive and this had to be stopped. Was placed on an amiodarone drip overnight for RVR. She was hypotensive so unable to use beta-darnell or Cardizem. Remains on amiodarone drip at this time. Telemetry showing a sinus tachycardia however, questionable atrial flutter so a 12 lead EKG was obtained. Read as SVT however, upon review with Dr. Pereira it is thought to be an atypical atrial flutter. DC amiodarone. Okay to transfer off of IMU She is being anticoagulated with Xarelto. (2) COVID-19: Code(s): U07.1 - COVID-19 Status: Acute Assessment and Plan: Newly diagnosed. Further workup per hospitalist (3) Peripheral artery disease: Code(s): I73.9 - Peripheral vascular disease, unspecified Status: Acute Assessment and Plan: DC clopidogrel but will continue aspirin and Xarelto at discharge (4) Lung cancer: Code(s): C34.90 - Malignant neoplasm of unspecified part of unspecified bronchus or lung Status: Acute Assessment and Plan: Status post chemo and radiation. (5) Hypertension: Code(s): I10 - Essential (primary) hypertension Status: Chronic Assessment and Plan: Continue home BP meds (6) Hyperlipidemia: Code(s): E78.5 - Hyperlipidemia, unspecified Status: Chronic Assessment and Plan: Continue statin (7) COPD (chronic obstructive pulmonary disease): Code(s): J44.9 - Chronic obstructive pulmonary disease, unspecified Status: Acute Assessment and Plan: Continue inhalers. Subjective Date/time seen: 07/31/21 12:18 Interval history: 81-year-old admitted for atrial fibrillation, shortness of breath and weakness. Found to be also COVID positive Date of service is 07/29/2021: Still coughing but a bit better. She feels about the same. She has no chest pain or shortness of breath at rest. Heart rate is better controlled Date of service 07/31/2021: She did convert to sinus rhythm. No chest pain. Cough is somewhat better. Short of breath is unchanged. Review of Systems Review of Systems: All systems reviewed & are unremarkable except as noted in HPI and below Constitutional: Constitutional: Denies excessive sweating, Denies headache(s) and Reports weakness Eyes: Eyes: Denies blurry vision ENT: Denies headache(s), Reports nasal congestion and Denies neck pain Cardiovascular: Cardiovascular: Denies chest pain, Reports dyspnea and Reports dyspnea on exertion Respiratory: Respiratory: Reports cough, Reports dyspnea and Reports dyspnea on exertion Gastrointestinal: Gastrointestinal: Denies abdominal pain Genitourinary: Genitourinary: Denies flank pain Musculoskeletal: Musculoskeletal: Denies neck pain Integumentary/Breasts: Skin/Breast: Denies dry skin Neurologic: Denies behavioral changes, Denies headache(s) and Reports weakness Psychiatric: Psychiatric: Denies behavioral changes Endocrine: Endocrine: Denies excessive sweating Hematologic/Lymphatic: Hematologic/Lymphatic: Denies easy bleeding Allergic/Immunologic: Allergic/Immunologic: Denies GI upset with certain foods Exam Narrative: Older lady laying in bed. Alert and oriented. Const: General: comfortable and no acute distress HENMT: Head: normal to inspection General nose exam: Normal nares present Eyes: Sclera: sclerae normal Neck: Neck: no JVD Carotids: no bruits Chest: Other: No reproducible chest wall pain to palpation Resp: Auscultation: wheezes and diminished lung sounds Cardio: Rate: regular rate Rhythm: regular rhythm and abnormal rhythm GI: Inspection: non-distended Auscultation: n
[2021-07-31 13:04] LABS: Glucose Point of Care 110 mg/dl (65-105)
[2021-07-31 17:02] LABS: Glucose Point of Care 106 mg/dl (65-105)
[2021-07-31] MEDS: RIVAROXABAN 20 MG TABLET PO (17:25)
[2021-07-31] MEDS: MONTELUKAST SODIUM 10 MG TABLET PO (20:43)
[2021-07-31] MEDS: REMDESIVIR 100 MG/NS 250 ML 100 MG/250 ML BAG 250 MG IVPB (20:43)
[2021-07-31] MEDS: SIMVASTATIN 5 MG TABLET 10 MG BY MOUTH (20:43)
--- NOTE | 2021-07-31 21:05 | PCRCNOTE ---
An Apnea Link study was ordered by Dr. Bautista to be done 07/31. Due to the pt's reliance on supplemental O2 right now that she does not wear at home, as well as the coughing fits she is having throughout the day and night that result in significant desaturation events, the study is being postponed. Feasibility of sleep study will be reevaluated tomorrow night.
[2021-07-31 21:27] LABS: Glucose Point of Care 134 mg/dl (65-105)
[2021-08-01] VITALS (29 sets, daily range): BP systolic 116–130; BP diastolic 31–99; PULSE 77–135; RESP 18–23; TEMP 36.6–37; O2SAT 86–99
[2021-08-01] MEDS: LEVALBUTEROL HFA (*SP) 15 GM INHALER 2 PUFF INHALATION ×6 (00:28→23:51)
[2021-08-01 05:19] LABS: Hemoglobin 11.1 g/dL (12.0-15.0); Mean Corpuscular HGB Conc 31.7 g/dl (32-36); Mean Corpuscular Hemoglobin 29.6 pg (26-34); Mean Corpuscular Volume 93.3 fl (80-100); Platelet Count Result 357 k/mm3 (150-375); Red Blood Count 3.75 M/mm3 (4.2-5.4); Red Cell Distribution Width 14.3 % (11.5-14.5); White Blood Count 7.5 K/mm3 (4.5-10.0)
[2021-08-01 05:32] LABS: Alanine Aminotransferase 12 U/L (4-35); Albumin Level 3.3 g/dL (3.5-5.1); Alkaline Phosphatase 57 U/L (38-126); Anion Gap 8 mmol/L (8-16); Aspartate Amino Transferase 18 U/L (14-36); Bilirubin,Total 0.5 mg/dL (0.2-1.3); Blood Urea Nitrogen 13 mg/dL (7-17); CRP 5.1 mg/dL (<1.0); Calcium 8.6 mg/dL (8.4-10.2); Carbon Dioxide 28 mmol/L (22-30); Chloride 96 mmol/L (98-107); Estimated CRCL calculation 74 ml/min; Estimated Glomerular Filt Rate > 60; Glucose 111 mg/dL (65-110); Potassium 4.6 mmol/L (3.4-5.0); Sodium 132 mmol/L (137-145)
[2021-08-01 05:43] LABS: INR 3.2; Prothrombin Time 31.8 Seconds (11.1-14.7)
[2021-08-01] MEDS: LEVOTHYROXINE SODIUM 12.5 MCG TABLET 37.5 MCG BY MOUTH (05:58)
[2021-08-01] MEDS: UMECLIDINIUM BROMIDE 62.5 MCG ELLIPTA 1 PUFF INHALATION (08:06)
[2021-08-01 08:43] LABS: Glucose Point of Care 105 mg/dl (65-105)
[2021-08-01] MEDS: guaiFENesin/DEXTROMETHORPHAN 10 ML UDC 5 ML PO ×4 (09:34→20:00)
[2021-08-01] MEDS: ALPRAZolam (*CRX) 0.25 MG TABLET BY MOUTH ×3 (09:34→18:29)
[2021-08-01] MEDS: ASPIRIN 81 MG ENTERIC TABLET BY MOUTH (09:35)
[2021-08-01] MEDS: METOPROLOL TARTRATE 12.5 MG TABLET PO (09:35)
[2021-08-01] MEDS: BENZONATATE 100 MG CAPSULE 200 MG PO ×3 (09:35→18:29)
[2021-08-01] MEDS: POTASSIUM CHLORIDE 10 MEQ TABLET.ER PO (09:35)
[2021-08-01] MEDS: SODIUM CHLORIDE 1 GM TABLET PO ×2 (09:37→18:29)
[2021-08-01] MEDS: FLUTICASONE PROPIONATE 0.05% NA SPR 16 GM BTL (*BKC) 1 SPRAY NASAL (09:37)
[2021-08-01] MEDS: FUROSEMIDE 20 MG TABLET BY MOUTH (09:37)
--- NOTE | 2021-08-01 09:50 | PM.PNCARD ---
Progress Note: A&P Assessment and Plan (1) Atrial fibrillation with rapid ventricular response: Code(s): I48.91 - Unspecified atrial fibrillation Status: Acute Assessment and Plan: This is a new diagnosis, unknown chronicity. Had previously been rate controlled on diltiazem. However, she became hypotensive and this had to be stopped. Was placed on an amiodarone drip overnight for RVR. She was previously on carvedilol as an outpatient. Will DC metoprolol and transition back to her home carvedilol but at least at a lower dose at this point. Will start at carvedilol 12.5 mg p.o. b.i.d. DC amiodarone. Okay to transfer off of IMU She is being anticoagulated with Xarelto. (2) COVID-19: Code(s): U07.1 - COVID-19 Status: Acute Assessment and Plan: Newly diagnosed. Further workup per hospitalist (3) Peripheral artery disease: Code(s): I73.9 - Peripheral vascular disease, unspecified Status: Acute Assessment and Plan: DC clopidogrel but will continue aspirin and Xarelto at discharge (4) Lung cancer: Code(s): C34.90 - Malignant neoplasm of unspecified part of unspecified bronchus or lung Status: Acute Assessment and Plan: Status post chemo and radiation. (5) Hypertension: Code(s): I10 - Essential (primary) hypertension Status: Chronic Assessment and Plan: Continue home BP meds (6) Hyperlipidemia: Code(s): E78.5 - Hyperlipidemia, unspecified Status: Chronic Assessment and Plan: Continue statin (7) COPD (chronic obstructive pulmonary disease): Code(s): J44.9 - Chronic obstructive pulmonary disease, unspecified Status: Acute Assessment and Plan: Continue inhalers. Subjective Date/time seen: 08/01/21 09:50 Interval history: 81-year-old admitted for atrial fibrillation, shortness of breath and weakness. Found to be also COVID positive Date of service is 07/29/2021: Still coughing but a bit better. She feels about the same. She has no chest pain or shortness of breath at rest. Heart rate is better controlled Date of service 07/31/2021: She did convert to sinus rhythm. No chest pain. Cough is somewhat better. Short of breath is unchanged. Date of service 08/01/2021: Remains in sinus rhythm. Overall feels okay. Cough is improved. No chest pain Review of Systems Review of Systems: All systems reviewed & are unremarkable except as noted in HPI and below Constitutional: Constitutional: Denies excessive sweating, Denies headache(s) and Reports weakness Eyes: Eyes: Denies blurry vision ENT: Denies headache(s), Reports nasal congestion and Denies neck pain Cardiovascular: Cardiovascular: Denies chest pain, Reports dyspnea and Reports dyspnea on exertion Respiratory: Respiratory: Reports cough, Reports dyspnea and Reports dyspnea on exertion Gastrointestinal: Gastrointestinal: Denies abdominal pain Genitourinary: Genitourinary: Denies flank pain Musculoskeletal: Musculoskeletal: Denies neck pain Integumentary/Breasts: Skin/Breast: Denies dry skin Neurologic: Denies behavioral changes, Denies headache(s) and Reports weakness Psychiatric: Psychiatric: Denies behavioral changes Endocrine: Endocrine: Denies excessive sweating Hematologic/Lymphatic: Hematologic/Lymphatic: Denies easy bleeding Allergic/Immunologic: Allergic/Immunologic: Denies GI upset with certain foods Exam Narrative: Older lady laying in bed. Alert and oriented. Const: General: comfortable and no acute distress HENMT: Head: normal to inspection General nose exam: Normal nares present Eyes: Sclera: sclerae normal Neck: Neck: no JVD Carotids: no bruits Chest: Other: No reproducible chest wall pain to palpation Resp: Auscultation: wheezes and diminished lung sounds Cardio: Rate: regular rate Rhythm: regular rhythm GI: Inspection: non-distended Auscultation: normal bowel sounds
[2021-08-01 12:19] LABS: Glucose Point of Care 124 mg/dl (65-105)
--- NOTE | 2021-08-01 13:12 | PM.IMPN ---
Progress Note: A&P Assessment and Plan (1) COVID-19: Code(s): U07.1 - COVID-19 Status: Acute Assessment and Plan: At this point I did not start her on any REM does severe. The patient stated she recently had Decadron and does not want Decadron at this point. She is wanting something for the cough though. I will start her on albuterol inhaler and Robitussin. The patient's heart rate is currently in the 80s. I will try Xopenex inhaler. However if it increases her heart rate then will need to stop it. 07/29/2021 Interval history: patient with COVID-19 will start the patient on remdesivir, patient with new onset atrial fibrillation with RVR patient is seen by Cardiology initial plan was to do BEN cardioversion however patient is COVID positive so it has been postponed, patient was started on diltiazem drip repeat is trending down patient anticoagulated with Lovenox for now, will switch over to oral anticoagulant upon discharge, patient states overall she is feeling better compared to when she was will continue to monitor. 07/30/2021 Interval history: patient with COVID-19 started the patient on remdesivir 2/5, patient is requesting 2 L of oxygen nasal cannula, patient with new onset atrial fibrillation with RVR patient was seen by Cardiology initial plan was to do BEN cardioversion however patient is COVID positive so it has been postponed, patient was started on diltiazem drip, rate is trending down patient anticoagulated with Lovenox for now, will switch over to oral anticoagulant upon discharge, patient states overall she is feeling better compared to when she was will continue to monitor. 07/31/2021 Interval history: patient with COVID-19 started the patient on remdesivir 3/5, today patient is requesting 5 L of oxygen nasal cannula, patient with new onset atrial fibrillation with RVR patient was seen by Cardiology initial plan was to do BEN cardioversion however patient is COVID positive so it has been postponed, patient was started on diltiazem drip, rate is trending down, however patient became hypotensive and was switched to amiodarone, and because of hypotension patient is not able to take beta-darnell or diltiazem, remains on low-dose amiodarone drip, and started on low-dose of metoprolol 12.5 mg b.i.d. will continue to monitor, patient was anticoagulated with Lovenox, now on Xarelto, patient states overall she is feeling better compared to when she arrived, will continue to monitor. 08/01/2021 Interval history: patient with COVID-19 started the patient on remdesivir 10/12, today patient is requesting 5 L of oxygen nasal cannula, today patient complaining more cough a repeat chest x-ray showed pulmonary congestion, will switch over IV Lasix and will continue to monitor, patient with new onset atrial fibrillation with RVR patient was seen by Cardiology initial plan was to do BEN cardioversion however patient is COVID positive so it has been postponed, patient was started on diltiazem drip, rate is trending down, however patient became hypotensive and was switched to amiodarone, and because of hypotension patient is not able to take beta-darnell or diltiazem, remains on low-dose amiodarone drip, and started on low-dose of metoprolol 12.5 mg b.i.d. will continue to monitor, patient now in sinus rhythm, patient was anticoagulated with Lovenox, now on Xarelto, patient states overall she is feeling better compared to when she arrived, will continue to monitor. (2) Atrial fibrillation with rapid ventricular response: Code(s): I48.91 - Unspecified atrial fibrillation Status: Acute Assessment and Plan: Patient has not had this previously. She started on subcu Lovenox. Cardiology has seen the patient. Patient is planning to have a BEN cardioversion tomorrow. Should be NPO after midnight. The patient's chads Vasc score is 5. (3) Peripheral artery disease: Code(s): I73.9 - Peripher
[2021-08-01 17:14] LABS: Glucose Point of Care 119 mg/dl (65-105)
[2021-08-01] MEDS: RIVAROXABAN 20 MG TABLET PO (18:29)
--- NOTE | 2021-08-01 18:31 | ECG_ITS ---
Measurements Intervals [place] Rate: 119 P: AL: 0 QRS: 14 QRSD: 94 T: 84 QT: 311 QTc: 438 Interpretive Statements ATRIAL FIBRILLATION WITH RAPID VENTRICULAR RESPONSE LOW QRS VOLTAGE IN LIMB LEADS BORDERLINE R WAVE PROGRESSION, ANTERIOR LEADS BORDERLINE T WAVE ABNORMALITY- ANT/HIGH LAT LEADS BASELINE ARTIFACT- V5 ABNORMAL ECG Electronically Signed On 08-01-2021 20:23:45 [employer] by Jarvis Cordero D.O.
--- NOTE | 2021-08-01 19:20 | PC.NURSE ---
Notified Vanesa Patient converted to AFIB RVR with a rate of 120's to 150's. STAT EKG ordered. Completed and in chart.
[2021-08-01] MEDS: carvediloL 12.5 MG TABLET PO (19:59)
[2021-08-01] MEDS: SIMVASTATIN 5 MG TABLET 10 MG BY MOUTH (19:59)
[2021-08-01] MEDS: MONTELUKAST SODIUM 10 MG TABLET PO (20:00)
[2021-08-01 21:45] LABS: Glucose Point of Care 150 mg/dl (65-105)
[2021-08-01] MEDS: AMIODARONE 360 MG/D5W 200 ML 360 MG/200 ML BAG 33.33 MG IV CONT (23:22)
[2021-08-02] VITALS (23 sets, daily range): BP systolic 104–128; BP diastolic 50–83; PULSE 62–131; RESP 16–20; TEMP 36.3–36.9; O2SAT 91–100
[2021-08-02] MEDS: AMIODARONE 360 MG/D5W 200 ML 360 MG/200 ML BAG 16.67 MG IV CONT (05:10)
[2021-08-02] MEDS: LEVOTHYROXINE SODIUM 25 MCG TABLET BY MOUTH (05:26)
[2021-08-02] MEDS: LEVOTHYROXINE SODIUM 12.5 MCG TABLET BY MOUTH (05:26)
[2021-08-02] MEDS: BENZONATATE 100 MG CAPSULE 200 MG PO ×3 (05:30→17:56)
[2021-08-02] MEDS: LEVALBUTEROL HFA (*SP) 15 GM INHALER 2 PUFF INHALATION ×5 (08:25→23:36)
[2021-08-02] MEDS: UMECLIDINIUM BROMIDE 62.5 MCG ELLIPTA 1 PUFF INHALATION (08:25)
[2021-08-02 08:49] LABS: Glucose Point of Care 103 mg/dl (65-105)
[2021-08-02] MEDS: POTASSIUM CHLORIDE 10 MEQ TABLET.ER PO (09:51)
[2021-08-02] MEDS: guaiFENesin/DEXTROMETHORPHAN 10 ML UDC 5 ML PO ×4 (09:52→21:46)
[2021-08-02] MEDS: carvediloL 12.5 MG TABLET PO ×2 (09:52→21:48)
[2021-08-02] MEDS: ASPIRIN 81 MG ENTERIC TABLET BY MOUTH (09:52)
[2021-08-02] MEDS: SODIUM CHLORIDE 1 GM TABLET PO ×2 (09:52→17:56)
[2021-08-02] MEDS: ALPRAZolam (*CRX) 0.25 MG TABLET BY MOUTH ×3 (09:52→17:55)
[2021-08-02] MEDS: FLUTICASONE PROPIONATE 0.05% NA SPR 16 GM BTL (*BKC) 1 SPRAY NASAL (09:53)
[2021-08-02] MEDS: FUROSEMIDE INJ 40 MG/4 ML VIAL IV PUSH (09:59)
[2021-08-02 12:06] LABS: Glucose Point of Care 144 mg/dl (65-105)
--- NOTE | 2021-08-02 13:16 | PM.PNCARD ---
Progress Note: A&P Additional Plan 81-year-old lady with: Coronavirus pneumonitis. Atrial fibrillation with RVR in this setting. She has converted to sinus rhythm with amiodarone. I will go ahead and transition her to an oral dosage of 400 mg q.12 at this time and gradually decreased that as we go forward. In this setting we do not expect or anticipate long-term antiarrhythmic therapy. Jonathan Pereira MD [facility] Subjective Date/time seen: Date of service: 08/02/21 13:16 Interval history: 81-year-old admitted for atrial fibrillation, shortness of breath and weakness. Found to be also COVID positive Date of service is 07/29/2021: Still coughing but a bit better. She feels about the same. She has no chest pain or shortness of breath at rest. Heart rate is better controlled Date of service 07/31/2021: She did convert to sinus rhythm. No chest pain. Cough is somewhat better. Short of breath is unchanged. Date of service 08/01/2021: Remains in sinus rhythm. Overall feels okay. Cough is improved. No chest pain Date of service 08/02/2021: Patient remains in sinus rhythm. No cardiovascular complaints. When asking how long she has to stay in the hospital. Continues on intravenous amiodarone. Exam Narrative: Older lady laying in bed. Alert and oriented. Const: General: comfortable and no acute distress HENMT: Head: normal to inspection General nose exam: Normal nares present Eyes: Sclera: sclerae normal Neck: Neck: no JVD Carotids: no bruits Chest: Other: No reproducible chest wall pain to palpation Resp: Auscultation: wheezes and diminished lung sounds Cardio: Rate: regular rate Rhythm: regular rhythm GI: Inspection: non-distended Auscultation: normal bowel sounds Skin: General skin exam: normal color Neuro: Cognition (Neuro): normal cognition Speech: normal speech Extrem: General: normal to inspection and no edema Psych: Affect: normal affect Objective Data Vital Signs Vital Signs: Vital Signs - 24 hr 08/01/21 14:00 08/01/21 16:00 08/01/21 16:19 Temperature 36.7 C Pulse Rate 87 87 87 Respiratory Rate 18 Blood Pressure 116/31 L Pulse Oximetry 95 08/01/21 18:00 08/01/21 19:59 08/01/21 20:00 Temperature Pulse Rate 122 H 135 H 125 H Respiratory Rate 18 Blood Pressure Pulse Oximetry 95 08/01/21 20:14 08/01/21 22:00 08/01/21 23:22 Temperature Pulse Rate 132 H 130 H Respiratory Rate Blood Pressure Pulse Oximetry 95 08/01/21 23:41 08/02/21 00:00 08/02/21 02:00 Temperature 36.4 C Pulse Rate 115 H 115 H 110 H Respiratory Rate 18 Blood Pressure 104/79 Pulse Oximetry 96 91 08/02/21 03:18 08/02/21 04:00 08/02/21 05:10 Temperature 36.3 C L Pulse Rate 108 H 105 H 115 H Respiratory Rate 16 16 Blood Pressure 107/74 Pulse Oximetry 97 97 08/02/21 06:00 08/02/21 08:27 08/02/21 08:44 Temperature Pulse Rate 102 H Respiratory Rate Blood Pressure Pulse Oximetry 100 95 08/02/21 09:52 Temperature Pulse Rate 71 Respiratory Rate Blood Pressure Pulse Oximetry Intake/Output Intake/Output: Intake & Output 07/30/21 07/31/21 08/01/21 08/02/21 23:59 23:59 23:59 23:59 Intake Total 1280 920 920 120 Output Total 2077 979 2225 500 Balance -120 170 -1580 -380 Meds/Results Medications: Active Medications Generic Name Dose Route Start Last Admin Trade Name Freq PRN Reason Stop Dose Admin Hydrocodone Bitart/Acetaminophen 5 - 325 tab 07/28/21 22:16 Hydrocodone/Acetaminophen (*Crx) 5-325 Mg Tablet PO TID PRN pain Alprazolam 0.25 mg 07/29/21 09:00 08/02/21 09:52 Alprazolam (*Crx) 0.25 Mg Tablet BY MOUTH 0.25 mg TID ANDERSON Administration Amiodarone HCl 400 mg 08/02/21 13:15 Amiodarone Hcl 200 Mg Tablet PO Q12H [facility] Aspirin 81 mg 07/29/21 09:00 08/02/21 09:52 Aspirin 81 Mg Enteric Tablet BY MOUTH 81 mg DAILY ANDERSON Administration Benzonatate 20
[2021-08-02 14:41] LABS: Hematocrit 31.7 % (37.0-47.0); Hemoglobin 10.1 g/dL (12.0-15.0); Mean Corpuscular HGB Conc 31.9 g/dl (32-36); Mean Corpuscular Hemoglobin 30.6 pg (26-34); Mean Corpuscular Volume 96.1 fl (80-100); Mean Platelet Volume 9.2 fl (7.4-10.4); Platelet Count Result 342 k/mm3 (150-375); Red Cell Distribution Width 14.4 % (11.5-14.5); White Blood Count 6.1 K/mm3 (4.5-10.0)
[2021-08-02 14:52] LABS: INR 2.5; Prothrombin Time 26.3 Seconds (11.1-14.7)
[2021-08-02 15:02] LABS: Alanine Aminotransferase 11 U/L (4-35); Alkaline Phosphatase 57 U/L (38-126); Anion Gap 4 mmol/L (8-16); Aspartate Amino Transferase 17 U/L (14-36); Bilirubin,Total 0.6 mg/dL (0.2-1.3); Blood Urea Nitrogen 13 mg/dL (7-17); CRP 5.4 mg/dL (<1.0); Calcium 8.9 mg/dL (8.4-10.2); Carbon Dioxide 34 mmol/L (22-30); Chloride 94 mmol/L (98-107); Estimated CRCL calculation 74 ml/min; Estimated Glomerular Filt Rate > 60; Glucose 127 mg/dL (65-110); Potassium 4.3 mmol/L (3.4-5.0); Sodium 132 mmol/L (137-145)
[2021-08-02] MEDS: AMIODARONE HCL 200 MG TABLET 400 MG PO ×2 (15:25→21:47)
--- NOTE | 2021-08-02 16:02 | PM.IMPN ---
Progress Note: A&P Assessment and Plan (1) COVID-19: Code(s): U07.1 - COVID-19 Status: Acute Assessment and Plan: At this point I did not start her on any REM does severe. The patient stated she recently had Decadron and does not want Decadron at this point. She is wanting something for the cough though. I will start her on albuterol inhaler and Robitussin. The patient's heart rate is currently in the 80s. I will try Xopenex inhaler. However if it increases her heart rate then will need to stop it. 07/29/2021 Interval history: patient with COVID-19 will start the patient on remdesivir, patient with new onset atrial fibrillation with RVR patient is seen by Cardiology initial plan was to do BEN cardioversion however patient is COVID positive so it has been postponed, patient was started on diltiazem drip repeat is trending down patient anticoagulated with Lovenox for now, will switch over to oral anticoagulant upon discharge, patient states overall she is feeling better compared to when she was will continue to monitor. 07/30/2021 Interval history: patient with COVID-19 started the patient on remdesivir 2/5, patient is requesting 2 L of oxygen nasal cannula, patient with new onset atrial fibrillation with RVR patient was seen by Cardiology initial plan was to do BEN cardioversion however patient is COVID positive so it has been postponed, patient was started on diltiazem drip, rate is trending down patient anticoagulated with Lovenox for now, will switch over to oral anticoagulant upon discharge, patient states overall she is feeling better compared to when she was will continue to monitor. 07/31/2021 Interval history: patient with COVID-19 started the patient on remdesivir 3/5, today patient is requesting 5 L of oxygen nasal cannula, patient with new onset atrial fibrillation with RVR patient was seen by Cardiology initial plan was to do BEN cardioversion however patient is COVID positive so it has been postponed, patient was started on diltiazem drip, rate is trending down, however patient became hypotensive and was switched to amiodarone, and because of hypotension patient is not able to take beta-darnell or diltiazem, remains on low-dose amiodarone drip, and started on low-dose of metoprolol 12.5 mg b.i.d. will continue to monitor, patient was anticoagulated with Lovenox, now on Xarelto, patient states overall she is feeling better compared to when she arrived, will continue to monitor. 08/01/2021 Interval history: patient with COVID-19 started the patient on remdesivir /5, today patient is requesting 5 L of oxygen nasal cannula, today patient complaining more cough a repeat chest x-ray showed pulmonary congestion, will switch over IV Lasix and will continue to monitor, patient with new onset atrial fibrillation with RVR patient was seen by Cardiology initial plan was to do BEN cardioversion however patient is COVID positive so it has been postponed, patient was started on diltiazem drip, rate is trending down, however patient became hypotensive and was switched to amiodarone, and because of hypotension patient is not able to take beta-darnell or diltiazem, remains on low-dose amiodarone drip, and started on low-dose of metoprolol 12.5 mg b.i.d. will continue to monitor, patient now in sinus rhythm, patient was anticoagulated with Lovenox, now on Xarelto, patient states overall she is feeling better compared to when she arrived, will continue to monitor. 08/02/2021 Interval history: patient with COVID-19 started the patient on remdesivir 11/11, today patient was requiring 5 L of oxygen nasal cannula, on 08/01 patient was complaining more cough a repeat chest x-ray showed pulmonary congestion, switched over IV Lasix and will continue to monitor, patient with new onset atrial fibrillation with RVR patient was seen by Cardiology initial plan was to do BEN cardioversion however patient is COVID positive s
[2021-08-02] MEDS: RIVAROXABAN 20 MG TABLET PO (17:56)
[2021-08-02 18:01] LABS: Glucose Point of Care 130 mg/dl (65-105)
[2021-08-02 20:42] LABS: Glucose Point of Care 129 mg/dl (65-105)
[2021-08-02] MEDS: SIMVASTATIN 5 MG TABLET 10 MG BY MOUTH (21:47)
[2021-08-02] MEDS: MONTELUKAST SODIUM 10 MG TABLET PO (21:48)
[2021-08-03] VITALS (17 sets, daily range): BP systolic 100–120; BP diastolic 48–78; PULSE 60–77; RESP 18–20; TEMP 36.5–37.3; O2SAT 93–100
[2021-08-03] MEDS: LEVALBUTEROL HFA (*SP) 15 GM INHALER 2 PUFF INHALATION ×4 (04:25→21:03)
[2021-08-03 05:53] LABS: Hematocrit 30.8 % (37.0-47.0); Hemoglobin 9.8 g/dL (12.0-15.0); Mean Corpuscular HGB Conc 31.8 g/dl (32-36); Mean Corpuscular Hemoglobin 30.1 pg (26-34); Mean Corpuscular Volume 94.5 fl (80-100); Mean Platelet Volume 9.4 fl (7.4-10.4); Platelet Count Result 362 k/mm3 (150-375); Red Blood Count 3.26 M/mm3 (4.2-5.4); Red Cell Distribution Width 14.3 % (11.5-14.5); White Blood Count 6.6 K/mm3 (4.5-10.0)
[2021-08-03 05:54] LABS: INR 3.8; Prothrombin Time 36.4 Seconds (11.1-14.7)
[2021-08-03 05:56] LABS: Alanine Aminotransferase 10 U/L (4-35); Albumin Level 3.3 g/dL (3.5-5.1); Alkaline Phosphatase 56 U/L (38-126); Anion Gap 4 mmol/L (8-16); Aspartate Amino Transferase 18 U/L (14-36); Bilirubin,Total 0.8 mg/dL (0.2-1.3); Blood Urea Nitrogen 14 mg/dL (7-17); CRP 3.9 mg/dL (<1.0); Calcium 8.8 mg/dL (8.4-10.2); Carbon Dioxide 35 mmol/L (22-30); Chloride 92 mmol/L (98-107); Estimated CRCL calculation 74 ml/min; Estimated Glomerular Filt Rate > 60; Glucose 107 mg/dL (65-110); Potassium 4.4 mmol/L (3.4-5.0); Sodium 131 mmol/L (137-145)
[2021-08-03] MEDS: LEVOTHYROXINE SODIUM 12.5 MCG TABLET BY MOUTH (05:57)
[2021-08-03] MEDS: LEVOTHYROXINE SODIUM 25 MCG TABLET BY MOUTH (05:57)
[2021-08-03 08:08] LABS: Glucose Point of Care 102 mg/dl (65-105)
[2021-08-03] MEDS: UMECLIDINIUM BROMIDE 62.5 MCG ELLIPTA 1 PUFF INHALATION (08:14)
[2021-08-03] MEDS: ALPRAZolam (*CRX) 0.25 MG TABLET BY MOUTH ×2 (09:18→20:45)
[2021-08-03] MEDS: guaiFENesin/DEXTROMETHORPHAN 10 ML UDC 5 ML PO ×4 (09:18→20:45)
[2021-08-03] MEDS: SODIUM CHLORIDE 1 GM TABLET PO ×2 (09:19→17:31)
[2021-08-03] MEDS: POTASSIUM CHLORIDE 10 MEQ TABLET.ER PO (09:19)
[2021-08-03] MEDS: BENZONATATE 100 MG CAPSULE 200 MG PO ×3 (09:19→17:31)
[2021-08-03] MEDS: AMIODARONE HCL 200 MG TABLET 400 MG PO ×2 (09:20→20:44)
[2021-08-03] MEDS: carvediloL 12.5 MG TABLET PO ×2 (09:20→20:45)
[2021-08-03] MEDS: ASPIRIN 81 MG ENTERIC TABLET BY MOUTH (09:20)
[2021-08-03] MEDS: FLUTICASONE PROPIONATE 0.05% NA SPR 16 GM BTL (*BKC) 1 SPRAY NASAL (09:20)
[2021-08-03] MEDS: FUROSEMIDE INJ 40 MG/4 ML VIAL IV PUSH (09:20)
--- NOTE | 2021-08-03 11:30 | PM.IMPN ---
Progress Note: A&P Assessment and Plan (1) COVID-19: Code(s): U07.1 - COVID-19 Status: Acute Assessment and Plan: Completed remdesivir 11/11, wean off oxygen home O2 eval before discharge (2) Atrial fibrillation with rapid ventricular response: Code(s): I48.91 - Unspecified atrial fibrillation Status: Acute Assessment and Plan: Patient has glenn for cardioversion but patient was positive for COVID-19 Status post Cardizem drip complicated with hypotension Status post amiodarone drip Amiodarone drip was weaned off currently on oral amiodarone tapering per Cardiology Anticoagulation started on Lovenox switched to Xarelto. (3) Peripheral artery disease: Code(s): I73.9 - Peripheral vascular disease, unspecified Status: Acute Assessment and Plan: Continue with aspirin. DC Plavix. (4) Lung cancer: Code(s): C34.90 - Malignant neoplasm of unspecified part of unspecified bronchus or lung Status: Acute Assessment and Plan: Patient has an outpatient follow-up scheduled in the near future. (5) COPD (chronic obstructive pulmonary disease): Code(s): J44.9 - Chronic obstructive pulmonary disease, unspecified Status: Acute Assessment and Plan: Continue with home inhalers. She may have to use her home dose of Spiriva. (6) DM2 (diabetes mellitus, type 2): Code(s): E11.9 - Type 2 diabetes mellitus without complications Status: Chronic Assessment and Plan: Accu-Cheks AC and HS. Sliding scale insulin. (7) Hypothyroidism: Code(s): E03.9 - Hypothyroidism, unspecified Status: Chronic Assessment and Plan: Continue with levothyroxine. (8) Hypertension: Code(s): I10 - Essential (primary) hypertension Status: Chronic Assessment and Plan: Continue current management (9) Hyperlipidemia: Code(s): E78.5 - Hyperlipidemia, unspecified Status: Chronic Assessment and Plan: Continue with simvastatin. Subjective Date/time seen: 08/03/21 11:30 Interval history: 81-year-old admitted for atrial fibrillation, shortness of breath and weakness. Found to be also COVID positive Patient was treated with Cardizem drip complicated with hypertension was switched to amiodarone drip cardiology recommendation appreciated amiodarone drip was weaned off and patient treated with amiodarone and Coreg orally also started on Xarelto patient also found to have COVID-19 pneumonia required oxygen treated with COVID-19 protocol Patient feels better today she still short of breath Patient denies fever headache chest pain shortness of breath I am seeing the patient for COVID-19 pneumonia. Exam Narrative: elderly frail Patient is comfortable, NAD HEENT: eyes are clear and none icteric LUNGS: Bilateral crackles and wheeze ABD: not distended. Lower extremities: Positive edema SKIN: nonjaundiced Neuro: grossly intact. Objective Data Vital Signs Vital Signs: Vital Signs - 24 hr 08/02/21 12:00 08/02/21 14:00 08/02/21 15:25 Temperature Pulse Rate 62 70 67 Respiratory Rate Blood Pressure Pulse Oximetry 94 08/02/21 16:00 08/02/21 16:14 08/02/21 18:00 Temperature 98.4 F Pulse Rate 71 72 73 Respiratory Rate 18 Blood Pressure 120/83 Pulse Oximetry 94 08/02/21 20:00 08/02/21 20:07 08/02/21 21:47 Temperature 98.2 F Pulse Rate 63 67 Respiratory Rate 18 Blood Pressure 128/71 Pulse Oximetry 95 97 08/02/21 21:48 08/02/21 22:00 08/02/21 23:33 Temperature 97.7 F Pulse Rate 67 62 62 Respiratory Rate 20 Blood Pressure 104/50 L Pulse Oximetry 100 08/03/21 00:00 08/03/21 02:00 08/03/21 04:00 Temperature Pulse Rate 62 66 60 Respiratory Rate Blood Pressure Pulse Oximetry 93 100 08/03/21 04:51 08/03/21 06:00 08/03/21 08:00 Temperature 98.0 F 99.1 F Pulse Rate 66 66 64 Respiratory Rate 20 18 Blood Pressure 100/54 L 11
[2021-08-03 13:34] LABS: Glucose Point of Care 125 mg/dl (65-105)
[2021-08-03 15:47] LABS: Glucose Point of Care 119 mg/dl (65-105)
--- NOTE | 2021-08-03 16:55 | PCRCNOTE ---
Window of time for administration has passed. See next scheduled administration.
[2021-08-03] MEDS: RIVAROXABAN 20 MG TABLET PO (17:31)
[2021-08-03] MEDS: MONTELUKAST SODIUM 10 MG TABLET PO (20:45)
[2021-08-03] MEDS: SIMVASTATIN 5 MG TABLET 10 MG BY MOUTH (20:45)
[2021-08-03 20:57] LABS: Glucose Point of Care 125 mg/dl (65-105)
[2021-08-04] VITALS (14 sets, daily range): BP systolic 97–140; BP diastolic 40–66; PULSE 60–113; RESP 16–24; TEMP 36.5–37; O2SAT 91–100
[2021-08-04] MEDS: LEVALBUTEROL HFA (*SP) 15 GM INHALER 2 PUFF INHALATION ×5 (00:05→19:59)
[2021-08-04 05:16] LABS: Hematocrit 31.8 % (37.0-47.0); Hemoglobin 10.3 g/dL (12.0-15.0); Mean Corpuscular HGB Conc 32.4 g/dl (32-36); Mean Corpuscular Hemoglobin 29.9 pg (26-34); Mean Corpuscular Volume 92.4 fl (80-100); Mean Platelet Volume 9.2 fl (7.4-10.4); Platelet Count Result 386 k/mm3 (150-375); Red Blood Count 3.44 M/mm3 (4.2-5.4); Red Cell Distribution Width 14.4 % (11.5-14.5); White Blood Count 7.2 K/mm3 (4.5-10.0)
[2021-08-04] MEDS: LEVOTHYROXINE SODIUM 25 MCG TABLET BY MOUTH (05:30)
[2021-08-04] MEDS: LEVOTHYROXINE SODIUM 12.5 MCG TABLET BY MOUTH (05:30)
[2021-08-04 05:40] LABS: Alanine Aminotransferase 11 U/L (4-35); Albumin Level 3.4 g/dL (3.5-5.1); Alkaline Phosphatase 57 U/L (38-126); Anion Gap 5 mmol/L (8-16); Aspartate Amino Transferase 18 U/L (14-36); Bilirubin,Total 0.9 mg/dL (0.2-1.3); Blood Urea Nitrogen 13 mg/dL (7-17); CRP 2.8 mg/dL (<1.0); Calcium 8.9 mg/dL (8.4-10.2); Carbon Dioxide 38 mmol/L (22-30); Chloride 91 mmol/L (98-107); Estimated CRCL calculation 74 ml/min; Estimated Glomerular Filt Rate > 60; Glucose 101 mg/dL (65-110); Sodium 134 mmol/L (137-145)
[2021-08-04] MEDS: AMIODARONE HCL 200 MG TABLET 400 MG PO (09:30)
[2021-08-04] MEDS: POTASSIUM CHLORIDE 10 MEQ TABLET.ER PO (09:30)
[2021-08-04] MEDS: guaiFENesin/DEXTROMETHORPHAN 10 ML UDC 5 ML PO ×4 (09:30→20:31)
[2021-08-04] MEDS: ASPIRIN 81 MG ENTERIC TABLET BY MOUTH (09:30)
[2021-08-04] MEDS: BENZONATATE 100 MG CAPSULE 200 MG PO ×3 (09:30→17:24)
[2021-08-04] MEDS: SODIUM CHLORIDE 1 GM TABLET PO ×2 (09:30→17:24)
[2021-08-04 10:09] LABS: Glucose Point of Care 92 mg/dl (65-105)
--- NOTE | 2021-08-04 10:29 | PM.PNCARD ---
Progress Note: A&P Assessment and Plan (1) Atrial fibrillation with rapid ventricular response: Code(s): I48.91 - Unspecified atrial fibrillation Status: Acute Assessment and Plan: This is a new diagnosis, unknown chronicity. Had previously been rate controlled on diltiazem. However, she became hypotensive and this had to be stopped. Was placed on an amiodarone drip overnight for RVR. She was previously on carvedilol as an outpatient. Will DC metoprolol and transition back to her home carvedilol but at least at a lower dose at this point. Continue carvedilol 12.5 mg p.o. b.i.d. Reduce amiodarone to 400 mg once daily. Discussed risks associated long-term amiodarone use but will plan for short-term as outpatient 1-3 months if possible. May consider transition to dronedarone if longer term antiarrhythmic therapy warranted. Continue carvedilol, Xarelto. Monitor for bleeding. Monitor BP. Caution with ambulation to avoid risk for falls and injuries. Patient is not in acute decompensated heart failure at this time fairly euvolemic and in fact appear slightly dry. (2) COVID-19: Code(s): U07.1 - COVID-19 Status: Acute Assessment and Plan: Newly diagnosed. Further workup per hospitalist. Wean O2 as tolerated. Home O2 eval. PT OT. Remains on isolation. (3) Peripheral artery disease: Code(s): I73.9 - Peripheral vascular disease, unspecified Status: Acute Assessment and Plan: History of carotid endarterectomy. Clopidogrel discontinued. Continue aspirin and Xarelto at discharge (4) Lung cancer: Code(s): C34.90 - Malignant neoplasm of unspecified part of unspecified bronchus or lung Status: Acute Assessment and Plan: Status post chemo and radiation. Per primary service. (5) Hypertension: Code(s): I10 - Essential (primary) hypertension Status: Chronic Assessment and Plan: Continue home BP meds although now with relative hypotension likely combination medication, reduced oral intake. Hold Lasix today. (6) Hyperlipidemia: Code(s): E78.5 - Hyperlipidemia, unspecified Status: Chronic Assessment and Plan: Continue statin (7) COPD (chronic obstructive pulmonary disease): Code(s): J44.9 - Chronic obstructive pulmonary disease, unspecified Status: Acute Assessment and Plan: Continue inhalers and supportive therapy per primary service. Subjective Date/time seen: Date of service: 08/04/21 10:29 Interval history: 81-year-old admitted for atrial fibrillation, shortness of breath and weakness. Found to be also COVID positive Patient states she continues to feel tired. Not eating well states the food tastes terrible. Denies dizziness. States she needs to get up and move around. Denies palpitations, chest pain. Notes her breathing is getting better not coughing as much. Edema much improved. Maintaining sinus rhythm on telemetry. Tolerating medications. BP little low this morning Lasix and carvedilol held initially. Review of Systems Review of Systems: All systems reviewed & are unremarkable except as noted in HPI and below Constitutional: Constitutional: Denies excessive sweating, Denies headache(s) and Reports weakness Eyes: Eyes: Denies blurry vision ENT: Denies headache(s), Reports nasal congestion and Denies neck pain Cardiovascular: Cardiovascular: Denies chest pain, Reports dyspnea and Reports dyspnea on exertion Respiratory: Respiratory: Reports cough, Reports dyspnea and Reports dyspnea on exertion Gastrointestinal: Gastrointestinal: Denies abdominal pain Genitourinary: Genitourinary: Denies flank pain Musculoskeletal: Musculoskeletal: Denies neck pain Integumentary/Breasts: Skin/Breast: Denies dry skin Neurologic: Denies behavioral changes, Denies headache(s) and Reports weakness Psychiatric: Psychiatric: Denies behavioral changes Endocrine: Endocrine: Denies excessive swe
--- NOTE | 2021-08-04 10:54 | PM.IMPN ---
Progress Note: A&P Assessment and Plan (1) COVID-19: Code(s): U07.1 - COVID-19 Status: Acute Assessment and Plan: Completed remdesivir 11/11, wean off oxygen home O2 eval before discharge (2) Atrial fibrillation with rapid ventricular response: Code(s): I48.91 - Unspecified atrial fibrillation Status: Acute Assessment and Plan: Patient has glenn for cardioversion but patient was positive for COVID-19 Status post Cardizem drip complicated with hypotension Status post amiodarone drip Amiodarone drip was weaned off currently on oral amiodarone tapering per Cardiology Coreg on hold because of hypotension Anticoagulation started on Lovenox switched to Xarelto. (3) Peripheral artery disease: Code(s): I73.9 - Peripheral vascular disease, unspecified Status: Acute Assessment and Plan: Continue with aspirin. DC Plavix. (4) Lung cancer: Code(s): C34.90 - Malignant neoplasm of unspecified part of unspecified bronchus or lung Status: Acute Assessment and Plan: Patient has an outpatient follow-up scheduled in the near future. (5) COPD (chronic obstructive pulmonary disease): Code(s): J44.9 - Chronic obstructive pulmonary disease, unspecified Status: Acute Assessment and Plan: Continue with home inhalers. She may have to use her home dose of Spiriva. (6) DM2 (diabetes mellitus, type 2): Code(s): E11.9 - Type 2 diabetes mellitus without complications Status: Chronic Assessment and Plan: Accu-Cheks AC and HS. Sliding scale insulin. (7) Hypothyroidism: Code(s): E03.9 - Hypothyroidism, unspecified Status: Chronic Assessment and Plan: Continue with levothyroxine. (8) Hypertension: Code(s): I10 - Essential (primary) hypertension Status: Chronic Assessment and Plan: Hold blood pressure medication because of hypotension (9) Hyperlipidemia: Code(s): E78.5 - Hyperlipidemia, unspecified Status: Chronic Assessment and Plan: Continue with simvastatin. (10) Hypotension: Code(s): I95.9 - Hypotension, unspecified Status: Acute Assessment and Plan: Probably related to over-diuresis DC Lasix Started midodrine Give normal saline bolus Hold blood pressure medication Subjective Date/time seen: 08/04/21 10:54 Interval history: 81-year-old admitted for atrial fibrillation, shortness of breath and weakness. Found to be also COVID positive Patient was treated with Cardizem drip complicated with hypertension was switched to amiodarone drip cardiology recommendation appreciated amiodarone drip was weaned off and patient treated with amiodarone and Coreg orally also started on Xarelto patient also found to have COVID-19 pneumonia required oxygen treated with COVID-19 protocol Patient had episodes of hypotension DC IV Lasix Started midodrine Hold blood pressure medication Chest x-ray shows bilateral pneumonia Patient denies fever headache chest pain shortness of breath I am seeing the patient for COVID-19 pneumonia. Exam Narrative: elderly frail Patient is comfortable, NAD HEENT: eyes are clear and none icteric LUNGS: Bilateral crackles and wheeze ABD: not distended. Lower extremities: Positive edema SKIN: nonjaundiced Neuro: grossly intact. Objective Data Vital Signs Vital Signs: Vital Signs - 24 hr 08/03/21 12:00 08/03/21 14:00 08/03/21 15:54 Temperature 98.1 F 98.2 F Pulse Rate 66 66 69 Respiratory Rate 18 20 Blood Pressure 110/50 L 119/48 L Pulse Oximetry 96 99 08/03/21 16:00 08/03/21 18:00 08/03/21 20:00 Temperature 97.7 F Pulse Rate 66 72 67 Respiratory Rate 20 Blood Pressure 120/78 Pulse Oximetry 95 98 08/03/21 21:05 08/03/21 22:00 08/04/21 00:00 Temperature 97.9 F Pulse Rate 65 75 Respiratory Rate 20 Blood Pressure 109/40 L Pulse Oximetry 98 98 08/04/21 02:00 08/04/21 04:00
[2021-08-04] MEDS: FLUTICASONE PROPIONATE 0.05% NA SPR 16 GM BTL (*BKC) 1 SPRAY NASAL (10:59)
[2021-08-04 12:36] LABS: Glucose Point of Care 72 mg/dl (65-105)
[2021-08-04] MEDS: ALBUMIN HUMAN 25% 25 GM/100 ML 100 ML IVPB (14:49)
[2021-08-04] MEDS: MIDODRINE HCL 10 MG TABLET PO ×2 (14:50→17:24)
[2021-08-04] MEDS: RIVAROXABAN 20 MG TABLET PO (17:24)
[2021-08-04 19:13] LABS: Glucose Point of Care 92 mg/dl (65-105)
[2021-08-04 20:17] LABS: Glucose Point of Care 120 mg/dl (65-105)
[2021-08-04] MEDS: ALPRAZolam (*CRX) 0.25 MG TABLET BY MOUTH (20:30)
[2021-08-04] MEDS: MONTELUKAST SODIUM 10 MG TABLET PO (20:31)
[2021-08-04] MEDS: carvediloL 12.5 MG TABLET PO (20:31)
[2021-08-04] MEDS: SIMVASTATIN 5 MG TABLET 10 MG BY MOUTH (20:32)
--- NOTE | 2021-08-04 22:42 | PC.NURSE ---
Transfered from IMU to [facility]. Arrived to unit on telemetry.
[2021-08-05] VITALS (12 sets, daily range): BP systolic 106–126; BP diastolic 40–99; PULSE 52–94; RESP 15–20; TEMP 36.3–36.8; O2SAT 91–100
[2021-08-05] MEDS: LEVALBUTEROL HFA (*SP) 15 GM INHALER 2 PUFF INHALATION ×6 (00:15→20:46)
[2021-08-05] MEDS: HYDROcodone/acetaminophen (*CRX) 5-325 MG TABLET PO (00:27)
--- NOTE | 2021-08-05 01:30 | PC.NURSE ---
This patient, Salma Martino, was transferred to [facility] on 08/04/21 at 2242. Personal belongings sent with patient. Report given to Zev. Appropriate documentation sent with patient.
[2021-08-05] MEDS: LEVOTHYROXINE SODIUM 25 MCG TABLET BY MOUTH (06:24)
[2021-08-05] MEDS: LEVOTHYROXINE SODIUM 12.5 MCG TABLET BY MOUTH (06:25)
[2021-08-05] MEDS: SODIUM CHLORIDE 1 GM TABLET PO ×2 (09:17→17:53)
[2021-08-05] MEDS: MIDODRINE HCL 10 MG TABLET PO ×3 (09:17→17:53)
[2021-08-05] MEDS: BENZONATATE 100 MG CAPSULE 200 MG PO ×3 (09:17→18:18)
[2021-08-05] MEDS: guaiFENesin/DEXTROMETHORPHAN 10 ML UDC 5 ML PO ×4 (09:17→21:18)
[2021-08-05] MEDS: AMIODARONE HCL 200 MG TABLET 400 MG PO (09:18)
[2021-08-05] MEDS: carvediloL 12.5 MG TABLET PO ×2 (09:18→21:18)
[2021-08-05] MEDS: ASPIRIN 81 MG ENTERIC TABLET BY MOUTH (09:18)
[2021-08-05] MEDS: ALPRAZolam (*CRX) 0.25 MG TABLET BY MOUTH ×3 (09:18→17:54)
[2021-08-05] MEDS: FLUTICASONE PROPIONATE 0.05% NA SPR 16 GM BTL (*BKC) 1 SPRAY NASAL (09:19)
[2021-08-05 09:20] LABS: Hematocrit 31.7 % (37.0-47.0); Hemoglobin 10.2 g/dL (12.0-15.0); Mean Corpuscular HGB Conc 32.2 g/dl (32-36); Mean Corpuscular Volume 93.2 fl (80-100); Mean Platelet Volume 9.1 fl (7.4-10.4); Platelet Count Result 376 k/mm3 (150-375); Red Cell Distribution Width 14.4 % (11.5-14.5); White Blood Count 7.8 K/mm3 (4.5-10.0)
[2021-08-05] MEDS: UMECLIDINIUM BROMIDE 62.5 MCG ELLIPTA 1 PUFF INHALATION (09:23)
[2021-08-05 09:32] LABS: Alanine Aminotransferase 11 U/L (4-35); Albumin Level 3.6 g/dL (3.5-5.1); Alkaline Phosphatase 58 U/L (38-126); Anion Gap 7 mmol/L (8-16); Aspartate Amino Transferase 20 U/L (14-36); Bilirubin,Total 0.9 mg/dL (0.2-1.3); Blood Urea Nitrogen 13 mg/dL (7-17); Carbon Dioxide 36 mmol/L (22-30); Chloride 89 mmol/L (98-107); Estimated CRCL calculation 74 ml/min; Estimated Glomerular Filt Rate > 60; Glucose 86 mg/dL (65-110); Sodium 132 mmol/L (137-145)
[2021-08-05 09:33] LABS: Glucose Point of Care 81 mg/dl (65-105)
[2021-08-05 09:44] LABS: CRP 1.8 mg/dL (<1.0)
--- NOTE | 2021-08-05 10:30 | PM.IMPN ---
Progress Note: A&P Assessment and Plan (1) COVID-19: Code(s): U07.1 - COVID-19 Status: Acute Assessment and Plan: Completed remdesivir 11/11, wean off oxygen home O2 eval before discharge Home O2 eval in a.m. Anticipate discharge in the morning home with home health (2) Atrial fibrillation with rapid ventricular response: Code(s): I48.91 - Unspecified atrial fibrillation Status: Acute Assessment and Plan: Patient has glenn for cardioversion but patient was positive for COVID-19 Status post Cardizem drip complicated with hypotension Status post amiodarone drip Amiodarone drip was weaned off currently on oral amiodarone tapering per Cardiology Hypotension improved added midodrine Medication adjusted by Cardiology Anticoagulation started on Lovenox switched to Xarelto. (3) Peripheral artery disease: Code(s): I73.9 - Peripheral vascular disease, unspecified Status: Acute Assessment and Plan: Continue with aspirin. DC Plavix. (4) Lung cancer: Code(s): C34.90 - Malignant neoplasm of unspecified part of unspecified bronchus or lung Status: Acute Assessment and Plan: Patient has an outpatient follow-up scheduled in the near future. (5) COPD (chronic obstructive pulmonary disease): Code(s): J44.9 - Chronic obstructive pulmonary disease, unspecified Status: Acute Assessment and Plan: Continue with home inhalers. She may have to use her home dose of Spiriva. (6) DM2 (diabetes mellitus, type 2): Code(s): E11.9 - Type 2 diabetes mellitus without complications Status: Chronic Assessment and Plan: Accu-Cheks AC and HS. Sliding scale insulin. (7) Hypothyroidism: Code(s): E03.9 - Hypothyroidism, unspecified Status: Chronic Assessment and Plan: Continue with levothyroxine. (8) Hypertension: Code(s): I10 - Essential (primary) hypertension Status: Chronic Assessment and Plan: Hold blood pressure medication because of hypotension (9) Hyperlipidemia: Code(s): E78.5 - Hyperlipidemia, unspecified Status: Chronic Assessment and Plan: Continue with simvastatin. (10) Hypotension: Code(s): I95.9 - Hypotension, unspecified Status: Acute Assessment and Plan: Probably related to over-diuresis DC Lasix Started midodrine Give normal saline bolus Hold blood pressure medication Subjective Date/time seen: 08/05/21 10:30 Interval history: 81-year-old admitted for atrial fibrillation, shortness of breath and weakness. Found to be also COVID positive Patient was treated with Cardizem drip complicated with hypertension was switched to amiodarone drip cardiology recommendation appreciated amiodarone drip was weaned off and patient treated with amiodarone and Coreg orally also started on Xarelto patient also found to have COVID-19 pneumonia required oxygen treated with COVID-19 protocol Hypertension was resolved after DC IV Lasix Started midodrine Cardiology tapering of amiodarone Probable discharge in a.m. after home O2 eval Will continue to monitor overnight Chest x-ray shows bilateral pneumonia Patient denies fever headache chest pain shortness of breath I am seeing the patient for COVID-19 pneumonia. Exam Narrative: elderly frail Patient is comfortable, NAD HEENT: eyes are clear and none icteric LUNGS: Bilateral crackles and wheeze ABD: not distended. Lower extremities: Positive edema SKIN: nonjaundiced Neuro: grossly intact. Objective Data Vital Signs Vital Signs: Vital Signs - 24 hr 08/04/21 12:00 08/04/21 14:00 08/04/21 16:00 Temperature 98.4 F 98.6 F Pulse Rate 65 68 68 Respiratory Rate 22 H 22 H Blood Pressure 130/49 L 117/47 L Pulse Oximetry 97 97 08/04/21 18:00 08/04/21 20:00 08/04/21 23:10 Temperature 98.2 F 97.7 F Pulse Rate 70 65 60 Respiratory Rate 20 16 Blood Pressure 124/40 L 140/66 Pulse Oximetr
[2021-08-05] MEDS: POTASSIUM CHLORIDE 10 MEQ TABLET.ER PO (12:19)
[2021-08-05 12:24] LABS: Glucose Point of Care 81 mg/dl (65-105)
[2021-08-05 16:54] LABS: Glucose Point of Care 107 mg/dl (65-105)
[2021-08-05] MEDS: RIVAROXABAN 20 MG TABLET PO (17:53)
[2021-08-05] MEDS: MONTELUKAST SODIUM 10 MG TABLET PO (21:17)
[2021-08-05] MEDS: SIMVASTATIN 5 MG TABLET 10 MG BY MOUTH (21:17)
[2021-08-05 22:18] LABS: Glucose Point of Care 104 mg/dl (65-105)
[2021-08-06] VITALS (9 sets, daily range): BP systolic 110–123; BP diastolic 42–66; PULSE 57–80; RESP 16–20; TEMP 36.4–37.1; O2SAT 88–100
[2021-08-06] MEDS: LEVALBUTEROL HFA (*SP) 15 GM INHALER 2 PUFF INHALATION ×4 (00:15→12:31)
[2021-08-06] MEDS: LEVOTHYROXINE SODIUM 25 MCG TABLET BY MOUTH (06:10)
[2021-08-06] MEDS: LEVOTHYROXINE SODIUM 12.5 MCG TABLET BY MOUTH (06:11)
[2021-08-06] MEDS: ALPRAZolam (*CRX) 0.25 MG TABLET BY MOUTH ×2 (08:22→12:23)
[2021-08-06 08:23] LABS: Glucose Point of Care 118 mg/dl (65-105)
[2021-08-06] MEDS: POTASSIUM CHLORIDE 10 MEQ TABLET.ER PO (08:23)
[2021-08-06] MEDS: carvediloL 12.5 MG TABLET PO (08:23)
[2021-08-06] MEDS: guaiFENesin/DEXTROMETHORPHAN 10 ML UDC 5 ML PO ×2 (08:23→12:23)
[2021-08-06] MEDS: ASPIRIN 81 MG ENTERIC TABLET BY MOUTH (08:24)
[2021-08-06] MEDS: AMIODARONE HCL 200 MG TABLET 400 MG PO (08:24)
[2021-08-06] MEDS: SODIUM CHLORIDE 1 GM TABLET PO (08:24)
[2021-08-06] MEDS: MIDODRINE HCL 10 MG TABLET PO (08:24)
[2021-08-06] MEDS: BENZONATATE 100 MG CAPSULE 200 MG PO ×2 (08:24→12:23)
[2021-08-06] MEDS: FLUTICASONE PROPIONATE 0.05% NA SPR 16 GM BTL (*BKC) 1 SPRAY NASAL (08:25)
[2021-08-06] MEDS: UMECLIDINIUM BROMIDE 62.5 MCG ELLIPTA 1 PUFF INHALATION (09:05)
--- NOTE | 2021-08-06 11:37 | PCNFU ---
Nutrition Follow-Up Complete: Unintentional weight loss related to A fib w/RVR and covid as evidenced by reported decreased appetite Goal: Pt to meet nutritional needs Pt is progressing toward goal Pt current nutrition is carb consistent/heart healthy diet and dietary supplement Last recorded weight is 70.5 kg. Bowel Motility: No new BM reported Labs Reviewed: hgb 10.2, hct 31.7, Cl 89, Na 132, CO2 36, Cr 0.5, Glu 118 Meds Noted: xanax, pacerone, tessalon perles, coreg, robitussin, xopenex, synthroid, midodrine, kcl Skin: No new skin breakdown at this time, WNL Additional Notes: Unable to visit with pt due to following covid precautions. Current nutrition is a carb consistent/heart healthy diet and dietary supplement of Glucerna Shake BID providing an additional 220kcal and 10g of protein. Reported intake is 50%, 70%, and 100%. Agree with diet order at this time. Will continue to follow. Will monitor labs, wt, medication, and reported intake every 7 days
--- NOTE | 2021-08-06 12:04 | PM.DS ---
DS: Admitting Diagnosis Discharge Date 08/06/2021 Admitting Diagnosis Shortness of breath DS: Discharge Diagnosis Discharge Diagnosis (1) COVID-19: Code(s): U07.1 - COVID-19 Status: Acute Assessment and Plan: Completed remdesivir 11/11, wean off oxygen home O2 eval before discharge Home O2 eval Patient is adamant about going home patient refused rehab (2) Atrial fibrillation with rapid ventricular response: Code(s): I48.91 - Unspecified atrial fibrillation Status: Acute Assessment and Plan: Patient has glenn for cardioversion but patient was positive for COVID-19 Status post Cardizem drip complicated with hypotension Status post amiodarone drip Amiodarone drip was weaned off currently on oral amiodarone tapering per Cardiology follow-up with cardiology in 1 week Hypotension resolved Anticoagulation started on Lovenox switched to Xarelto. Coreg and quinapril dose was adjusted as patient has lower blood pressure (3) Peripheral artery disease: Code(s): I73.9 - Peripheral vascular disease, unspecified Status: Acute Assessment and Plan: Continue with aspirin. DC Plavix. (4) Lung cancer: Code(s): C34.90 - Malignant neoplasm of unspecified part of unspecified bronchus or lung Status: Acute Assessment and Plan: Patient has an outpatient follow-up scheduled in the near future. (5) COPD (chronic obstructive pulmonary disease): Code(s): J44.9 - Chronic obstructive pulmonary disease, unspecified Status: Acute Assessment and Plan: Continue with home inhalers. She may have to use her home dose of Spiriva. (6) DM2 (diabetes mellitus, type 2): Code(s): E11.9 - Type 2 diabetes mellitus without complications Status: Chronic Assessment and Plan: Resume home medication (7) Hypothyroidism: Code(s): E03.9 - Hypothyroidism, unspecified Status: Chronic Assessment and Plan: Continue with levothyroxine. (8) Hypertension: Code(s): I10 - Essential (primary) hypertension Status: Chronic Assessment and Plan: Medication was adjusted as above (9) Hyperlipidemia: Code(s): E78.5 - Hyperlipidemia, unspecified Status: Chronic Assessment and Plan: Continue with simvastatin. (10) Hypotension: Code(s): I95.9 - Hypotension, unspecified Status: Acute Assessment and Plan: Probably related to over-diuresis DC Lasix Started midodrine Give normal saline bolus Hold blood pressure medication Resolved Patient is a Gruen a ella Lasix was discontinued with follow-up with PCP DS: Summary Hospital Course Hospital Course: Patient presented to the hospital with abnormal rhythm was found to have AFib with RVR also tested for COVID-19 and was positive repeat chest x-ray showed positive COVID pneumonia for AFib with RVR patient was treated with Cardizem drip which complicated with hypotension switched to amiodarone drip for COVID-19 patient treated with remdesivir dexamethasone patient was require oxygen during hospitalization During hospitalization patient has episodes of hypotension Lasix was discontinued Coreg dose was adjusted also on discharge quinapril dose was adjusted Time Spent with Patient Time attestation: Total time spent providing and/or coordinating discharge services: DS: Data Data Completed and Pending Labs on day of discharge: Labs from last 24 hours 08/06/21 08/05/21 08/05/21 08:09 22:10 16:33 POC Capillary Glucose 118 H 104 107 H 08/05/21 12:19 POC Capillary Glucose 81 Discharge Plan Discharge Attending physician on discharge: Edgardo Mann M.A. Consulting providers: Paco Gallegos Discharging Clinician: Edgardo Mann M.A. Patient Disposition: Home Health Service Activity: as tolerated Diet: heart healthy and diabetic Patient Instructions: Antibiotic Form Stand Alone Forms: General Discharge
[2021-08-06 12:10] LABS: Glucose Point of Care 87 mg/dl (65-105)
[2021-08-06 12:51] LABS: Hematocrit 29.1 % (37.0-47.0); Hemoglobin 9.3 g/dL (12.0-15.0); Mean Corpuscular Hemoglobin 30.1 pg (26-34); Mean Corpuscular Volume 94.2 fl (80-100); Platelet Count Result 357 k/mm3 (150-375); Red Blood Count 3.09 M/mm3 (4.2-5.4); Red Cell Distribution Width 14.6 % (11.5-14.5)
[2021-08-06 13:10] LABS: Alanine Aminotransferase 10 U/L (4-35); Albumin Level 3.1 g/dL (3.5-5.1); Alkaline Phosphatase 49 U/L (38-126); Anion Gap 0 mmol/L (8-16); Aspartate Amino Transferase 20 U/L (14-36); Bilirubin,Total 0.6 mg/dL (0.2-1.3); Blood Urea Nitrogen 10 mg/dL (7-17); CRP 1.9 mg/dL (<1.0); Calcium 8.8 mg/dL (8.4-10.2); Carbon Dioxide 39 mmol/L (22-30); Chloride 91 mmol/L (98-107); Estimated CRCL calculation 74 ml/min; Estimated Glomerular Filt Rate > 60; Glucose 94 mg/dL (65-110); Potassium 4.3 mmol/L (3.4-5.0); Sodium 130 mmol/L (137-145)
--- NOTE | 2021-08-06 13:25 | PCRCNOTE ---
Home oxygen being arranged with [facility] phone Tank to be delivered to hospital for transport home
== END 2021-08-06 15:02 | disposition home health service (06) | DRG 177 ==
LOC: ANHED 16:12 → ANHIMU 17:45 → ANH3MEDSUR 08-04 23:08
PROVIDERS: Family Medicine; Nurse Practitioner; Admitting Provider Internal Medicine; Emergency Provider Emergency Medicine; PCP Family Medicine; Visit Provider Internal Medicine
DX: U07.1 COVID-19 (principal); J12.82 Pneumonia due to coronavirus disease 2019; C34.90 Malignant neoplasm of unspecified part of unspecified bronchus or lung; I48.91 Unspecified atrial fibrillation; R05.3 Chronic cough; E78.5 Hyperlipidemia, unspecified; E11.51 Type 2 diabetes mellitus with diabetic peripheral angiopathy without gangrene; E03.9 Hypothyroidism, unspecified; I95.9 Hypotension, unspecified; I10 Essential (primary) hypertension; J44.9 Chronic obstructive pulmonary disease, unspecified; Z92.21 Personal history of antineoplastic chemotherapy; Z92.3 Personal history of irradiation; Z79.82 Long term (current) use of aspirin; Z79.02 Long term (current) use of antithrombotics/antiplatelets; Z87.891 Personal history of nicotine dependence; Z85.43 Personal history of malignant neoplasm of ovary; Z90.49 Acquired absence of other specified parts of digestive tract; Z79.84 Long term (current) use of oral hypoglycemic drugs
CPT/HCPCS: 36415; 71045; 71275; 80048; 80053; 82728; 82948; 83615; 83735; 83880; 84443; 84460; 84484; 85025; 85027; 85610; 85730; 86140; 93005; 94618; 94640; 94762; 96365; 96366; 96372; 97161; 99285; A9270; C9803; G0378; J0282; J1650; J1940; P9047; Q9967; U0003; U0005